=== PATIENT | male | born 1955 | race Caucasian/White ===

== ENCOUNTER 2019-07-21 00:26 | Outpatient (CLI) | payer MEDICARE, SELFPAY ==
[2019-07-21 18:00] LABS: SARS-CoV-2 RNA PCR Negative
== END 2019-07-21 00:27 | disposition home or self-care (01) ==
LOC: ANHCOVIDDT 00:28
PROVIDERS: PCP Family Medicine; Visit Provider Internal Medicine Cardiovascular Disease
DX: Z01.818 Encounter for other preprocedural examination (principal); Z11.59 Encounter for screening for other viral diseases
CPT/HCPCS: 87635; C9803; U0003

== ENCOUNTER 2019-07-24 05:04 | Day surgery (SDC) | payer MEDICARE, SELFPAY ==
[2019-07-19 10:49] VITALS: BMI 28.8
[2019-07-24 07:06] VITALS: BP 125/93; PULSE 52; RESP 11; TEMP 36.5; O2SAT 100
[2019-07-24 07:26] LABS: Basophils Percent Auto 0.8 % (0.2-1.2); Eosinophils Absolute Auto 0.3 K/mm3 (0-0.3); Eosinophils Percent Auto 5.2 % (0-4.4); Hematocrit 38.8 % (42.0-52.0); Hemoglobin 12.5 g/dL (14.0-18.0); Immature Granulocyte Absolute 0.01 K/mm3 (0.00-0.031); Immature Granulocyte Percent A 0.2 % (0-0.5); Lymphocytes Absolute Auto 1.56 K/mm3 (0.9-3.2); Lymphocytes Percent Auto 32.7 % (18.3-44.2); Mean Corpuscular HGB Conc 32.2 g/dl (32-36); Mean Corpuscular Hemoglobin 29.4 pg (26-34); Mean Corpuscular Volume 91.3 fl (80-100); Mean Platelet Volume 9.4 fl (7.4-10.4); Monocytes Absolute Auto 0.6 K/mm3 (0.1-0.6); Monocytes Percent Auto 13.2 % (2.6-8.5); Neutrophils Absolute Auto 2.3 K/mm3 (1.3-6.7); Neutrophils Percent Auto 47.9 % (45.5-73.1); Platelet Count Result 215 k/mm3 (150-375); Red Blood Count 4.25 M/mm3 (4.6-6.20); Red Cell Distribution Width 13.8 % (11.5-14.5); White Blood Count 4.8 K/mm3 (4.5-10.0)
[2019-07-24 07:41] LABS: Blood Urea Nitrogen 12 mg/dL (9-20); Calcium 9.1 mg/dL (8.4-10.2); Carbon Dioxide 28 mmol/L (22-30); Chloride 102 mmol/L (98-107); Estimated CRCL calculation 82 ml/min; Estimated Glomerular Filt Rate > 60; Glucose 121 mg/dL (75-110); Potassium 4.6 mmol/L (3.4-5.0); Prothrombin Time 12.7 Seconds (11.1-14.7); Sodium 138 mmol/L (137-145)
--- NOTE | 2019-07-24 08:32 | PM.IMHP ---
H&P: HPI History of Present Illness Chief complaint: ADRIANNA Narrative: Bernard Magallanes is a 63 year old male with a history of Biotronik ICD [place] [address] Bravo for secondary prevention. He has done well with no defibrillations but his pulse generator has reached ADRIANNA and he is here for generator change. The patient is followed by Dr. Melissa. He had a STEMI in 2010 treated with a STEVE to the proximal Left anterior descending. He has a history of ischemic cardiomyopathy with EF running about 39-45%, hypertension, dyslipidemia and he is a former smoker. He has been NPO. Review of Systems Constitutional: Constitutional: Denies body ache(s) and Denies chills Eyes: Eyes: Denies no additional eye complaints ENT: Denies nasal congestion Cardiovascular: Cardiovascular: Denies chest pain, Denies leg edema and Denies palpitations Respiratory: Respiratory: Denies chest congestion, Denies dyspnea and Denies dyspnea on exertion Gastrointestinal: Gastrointestinal: Denies abdominal pain Genitourinary: Genitourinary: Denies dysuria Musculoskeletal: Musculoskeletal: Denies arthralgias Integumentary/Breasts: Skin/Breast: Denies wounds Neurologic: Denies confusion Psychiatric: Psychiatric: Denies behavioral changes [facility] Past Medical History Medical History Coronary arteriosclerosis Essential hypertension Old myocardial infarction Overweight Prediabetes Pure hypercholesterolemia, unspecified Surgical History Surgical History History of cardiac catheterization (~11/21/10) Family History Family History (Updated 08/29/17 @ 13:46 by DOCTOR UNKNOWN) Father Family history of cardiovascular disease Diabetes mellitus Hypertension Family history of elevated blood lipids Mother Family history of dementia Family history of Alzheimer's disease Social History Social History Smoking status: Former smoker (quit August 2018) Tobacco type: cigarettes Smoking end date: 09/19/18 Alcohol intake: current Substance use: never Gender identity (if verbalized by the patient): Male Spiritual care concerns: No Meds Home Medications and Allergies Home Medications Medication Instructions Recorded Confirmed Type aspirin 81 mg tablet,delayed 81 mg PO DAILY 02/08/19 07/19/19 History release carvedilol 12.5 mg tablet 12.5 mg PO Q12H 02/08/19 07/19/19 History lisinopril 10 mg tablet 10 mg PO DAILY 02/08/19 07/19/19 History rosuvastatin 40 mg tablet 40 mg PO DAILY 02/08/19 07/19/19 History ezetimibe [Zetia] 10 mg PO DAILY 07/19/19 07/19/19 History Allergies Allergy/AdvReac Type Severity Reaction Status Date / Time No Known Allergies Allergy Verified 02/08/19 10:05 Vital Signs Vital Signs - 24 hr 07/24/19 07:06 Temperature 97.7 F Pulse Rate 52 L Respiratory Rate 11 L Blood Pressure 125/93 H Pulse Oximetry 100 Exam Const: General: comfortable and no acute distress HENMT: Mouth: Yes moist mucous membranes and Yes dry mucous membranes Eyes: EOM: EOMs intact bilaterally Neck: Neck: supple Resp: Effort & Inspection: normal respiratory effort Auscultation: clear to auscultation bilaterally Cardio: Rate: regular rate Rhythm: regular rhythm Heart sounds: no murmurs GI: Inspection: non-distended GI Palp: Yes Soft to palpation and No Tenderness to palpation present (GI) : Male General Exam: Yes erythema Skin: General skin exam: no rashes or lesions noted Other: ICD site is well healed Neuro: Cognition (Neuro): normal cognition Speech: normal speech Motor exam (neuro): Normal motor muscle tone present throughout Extrem: General: no edema Psych: Mental Status: mental status grossly normal Affect: normal affect H&P: Results Labs Labs: Short CBC 07/24/19 Range/Units 07:10 WBC 4.8 (4.5-
--- NOTE | 2019-07-24 08:39 | WPDMODSED ---
Moderate Sedation Note-Pt Data Patient Data Diagnosis: ICD at ADRIANNA Present Complaint: Dual-chamber Biotronik ICD implanted 2010, now at ADRIANNA. History of ischemic cardiomyopathy. Procedure to be performed/Plan: Conscious sedation new line generator change Allergies Allergy/AdvReac Type Severity Reaction Status Date / Time No Known Allergies Allergy Verified 02/08/19 10:05 Home Medications Medication Instructions Recorded Confirmed Type aspirin 81 mg tablet,delayed 81 mg PO DAILY 02/08/19 07/19/19 History release carvedilol 12.5 mg tablet 12.5 mg PO Q12H 02/08/19 07/19/19 History lisinopril 10 mg tablet 10 mg PO DAILY 02/08/19 07/19/19 History rosuvastatin 40 mg tablet 40 mg PO DAILY 02/08/19 07/19/19 History ezetimibe [Zetia] 10 mg PO DAILY 07/19/19 07/19/19 History Sedation/Anesthesia: No previous sedation/anesthesia problems (including family history). [facility] Past Medical History Medical History Coronary arteriosclerosis Essential hypertension Old myocardial infarction Overweight Prediabetes Pure hypercholesterolemia, unspecified Surgical History Surgical History History of cardiac catheterization (~11/21/10) Family History Family History (Updated 08/29/17 @ 13:46 by DOCTOR UNKNOWN) Father Family history of cardiovascular disease Diabetes mellitus Hypertension Family history of elevated blood lipids Mother Family history of dementia Family history of Alzheimer's disease Social History Social History Smoking status: Former smoker (quit August 2018) Tobacco type: cigarettes Smoking end date: 09/19/18 Alcohol intake: current Substance use: never Gender identity (if verbalized by the patient): Male Spiritual care concerns: No Mod Sed Physical Exam Physical Exam Pre Procedural Exam: Normal: Appearance, Eyes, Ears, Nose, Neck, Airway, Lungs, Heart Size, Heart Rate, Heart Rhythm, Neuro Exam, Abdomen, Liver, Spleen, Extremities and Skin (ICD site is well healed) and Variation: Throat (Dental caries) Hours since solid foods: 12 Hours since liquid intake: 12 Internal Medicine - PN: Obj Da Vital Signs Vital Signs: Vital Signs - 24 hr 07/24/19 07:06 Temperature 97.7 F Pulse Rate 52 L Respiratory Rate 11 L Blood Pressure 125/93 H Pulse Oximetry 100 Labs CBC & Chem 7: 07/24/19 07:10 07/24/19 07:10 Labs: Laboratory Results - last 24 hr 07/24/19 07/24/19 07/24/19 07:10 07:10 07:10 WBC 4.8 RBC 4.25 L Hgb 12.5 L Hct 38.8 L MCV 91.3 MCH 29.4 MCHC 32.2 RDW 13.8 Plt Count 215 MPV 9.4 Immature Gran % (Auto) 0.2 Neut % (Auto) 47.9 Lymph % (Auto) 32.7 Meriwether % (Auto) 13.2 H Eos % (Auto) 5.2 H Baso % (Auto) 0.8 Lymph # (Auto) 1.56 [place]iwether # (Auto) 0.6 Eos # (Auto) 0.3 Baso # (Auto) 0.0 Abs Immat Gran (auto) 0.01 Absolute Neuts (auto) 2.3 Absolute Nucleated RBC 0.0 Nucleated RBC % 0.0 PT 12.7 INR 1.0 Sodium 138 Potassium 4.6 Chloride 102 Carbon Dioxide 28 BUN 12 Creatinine 0.70 Estim Creat Clear Calc 82 Estimated GFR > 60 Glucose 121 H Calcium 9.1 ASA Classification/Sedation ASA Classification/Sedation ASA Class: II Risks: Risks, benefits and alternatives explained and patient/family accepted plan for sedation. Patient re-evaluated immediately prior to sedation.
--- NOTE | 2019-07-24 10:23 | P.OP_ITS ---
Procedure Note - Detailed Date of procedure: 07/24/19 Pre-op diagnosis: ADRIANNA ICD ADRIANNA Post-op diagnosis: same Procedure performed: conscious sedation generator change Description of procedure: PROCEDURE: Concious sedation Generator change UNDERLYING RHYTHM: NSR CONSCIOUS SEDATION: Assessment: The patient has no history of anesthesia problems. The oropharynx is clear. The patient was deemed to be a good candidate for conscious sedation. The patient had continuous hemodynamic and oximetric monitoring during the procedure. Start time: 925 Completion time: 12 09 Total conscious sedation time: 53 minutes Medications: Versed 2 mg, Versed IV push Trained observer: Kristen Hernandez Outcome: The patient tolerated the procedure well with no complications. PROCEDURE: After informed consent, the patient is brought to the cath lab radiology technician and the left prepectoral area was prepped and draped in usual fashion. The patient was given a prophylactic antibiotic intravenously with Ancef 2 g IV pushAfter conscious sedation as described above, the area was anesthetized with 1% lidocaine. A skin incision is made with the Plasma Blade and carried down to the pacing capsule which was also incised. Hemostasis is obtained using the Plasma Blade. the stay stitch was incised.The lead/s was/were freed from the underlying capsule and the pulse generator was delivered from the pocket. The lead/s was/were disconnected from the existing device and reconnected to the new device. A gentle tug could not remove it/them. The device and lead/s was/were interrogated and found to be functioning appropriately. The area was copiously irrigated with antibiotic-containing solution. The device was replaced in the pocket. Another stay stitch was applied 2 0 silk suture. The subcutaneous tissues were closed in a two-layer fashion with interrupted 2 0 Vicryl sutures and the skin was closed in a continuous fashion using 4 0 Vicryl. The area was cleansed, an Aquacel dressing applied. The patient tolerated the procedure well with no complications. Estimated blood loss was negligible. DEVICE INFORMATION: New pulse generator: Biotronik Itivia,, serial # [id number] Existing right atrial lead: BiotronikSetrox S 45, serial # [id number] Right ventricular lead: Biotronik Linox Smart S60, serial # [id number] Explanted device: Biotronik ICD Lumas 540, SErial # [id number], implanted 12/25/2010 THRESHOLD INFORMATION: Atrial lead: P-wave sensing is 3.4 mV, threshold 0.6 volts with 0.4 milliseconds, impedance 476 Ohms RV lead: R-wave sensing 5.0 mV, threshold 0.8 volts at 0.4 milliseconds, pacing impedance 395 Ohms, shock impedance 84 Ohms PROGRAMMED PARAMETERS: DDD 50/130, V-tach 1 zone is rate 150, V-tach 2 zone is rate 176, VFib zone is rate 222 FOLLOWUP: Follow-up in 1 week for an incision check and continue with device Clinic Surgeon: Rose Ulrich MD
[2019-07-24 10:40] VITALS: BP 116/98; PULSE 54; RESP 12; TEMP 36.8; O2SAT 97
[2019-07-24 10:45] VITALS: BP 118/79; PULSE 51; RESP 17; O2SAT 98
[2019-07-24 11:00] VITALS: BP 107/74; PULSE 50; RESP 14; O2SAT 97
[2019-07-24 11:15] VITALS: BP 119/82; PULSE 55; RESP 15; O2SAT 100
[2019-07-24 11:30] VITALS: BP 139/75; PULSE 62; RESP 16; O2SAT 100
== END 2019-07-24 11:50 | disposition home or self-care (01) ==
PROVIDERS: PCP Family Medicine; Visit Provider Internal Medicine Cardiovascular Disease
PROC: 0JPT0PZ Removal of Cardiac Rhythm Related Device from Trunk Subcutaneous Tissue and Fascia, Open Approach (ICD-10-PCS; CPT 33264; principal; 2019-07-24 08:30)
DX: Z45.02 Encounter for adjustment and management of automatic implantable cardiac defibrillator (principal); I25.5 Ischemic cardiomyopathy; I25.10 Atherosclerotic heart disease of native coronary artery without angina pectoris; I10 Essential (primary) hypertension; I25.2 Old myocardial infarction; E78.00 Pure hypercholesterolemia, unspecified; R73.03 Prediabetes; Z79.82 Long term (current) use of aspirin; Z87.891 Personal history of nicotine dependence
CPT/HCPCS: 33264; 36415; 80048; 85025; 85610; 87635; C1721; C9803; J0690; J1644; J2250; J3010; J7040; U0003

== ENCOUNTER 2019-08-21 09:12 | Outpatient (CLI) | payer MEDICARE, SELFPAY ==
--- NOTE | ~2019-08-21 | US_ITS ---
EXAMINATION: US aorta [facility] DATE: 08/21/2019 10:18 INDICATION: Abdominal aortic aneurysm screening. TECHNIQUE: Grayscale, color Doppler, and pulsed Doppler images of the aorta and common iliac arteries were obtained. COMPARISON: None. FINDINGS: The proximal aorta measures 2.4 cm. The mid aorta measures 2.3 cm. There is fusiform ectasia of the d istal aorta which measures up to 2.8 cm tapering to 1.8 cm at the bifurcation. The right common iliac artery measures 1.3 cm. The left common iliac artery measures 1.3 cm. IMPRESSION: 1. Fusiform ectasia of the infrarenal aorta which measures up to 2.8 cm. Reviewed, dictated and finalized at location A.
--- NOTE | ~2019-08-21 | CT_ITS ---
EXAMINATION: CT lung screening EXAM DATE: 08/21/2019 10:18 INDICATION: Personal history of nicotine dependence. TECHNIQUE: Spiral low dose CT of the chest without contrast. Axial, coronal and sagittal images were reviewed. The dose-length product (DLP) for this examination was 111.11 mGy-cm. The exposure was t ailored according to patient size (auto mA exposure control), and iterative reconstruction (ASIR) was used as additional dose reduction technique. There is no prior study for comparison. FINDINGS: There is a dual lead pacemaker/AICD seen with leads projecting over the expected locations of the right atrial appendage and right ventricle. Scattered calcified granulomas. There is mild emp hysema. There is a 3 mm noncalcified nodule in the right lower lobe superior segment. Tracheobronchi al tree is patent. There is no mediastinal, hilar or axillary lymphadenopathy. There are no pleur al or pericardial effusions. There is no pneumothorax. Heart normal in size. There is moderate coronary arterial calcification, arterial sclerosis. Some calcifications along the interventricular s eptum, probably old septal infarction. Upper abdomen is unremarkable. There is mild thoracic spondy losis without osteoblastic or osteolytic lesions identified. IMPRESSION: Lung-RADS category 2, benign appearance or behavior (<1% chance of malignancy); recommend continued LDCT screening in 1 year. > Reviewed, dictated and finalized at location B.
== END 2019-08-21 09:13 | disposition home or self-care (01) ==
PROVIDERS: PCP Family Medicine; Visit Provider Physician Assistant
DX: Z12.2 Encounter for screening for malignant neoplasm of respiratory organs (principal); Z87.891 Personal history of nicotine dependence; Z13.6 Encounter for screening for cardiovascular disorders; I77.819 Aortic ectasia, unspecified site
CPT/HCPCS: 76706; G0297

== ENCOUNTER 2019-12-28 00:47 | Outpatient (CLI) | payer MEDICARE, SELFPAY ==
[2019-12-28 20:27] LABS: SARS-CoV-2 RNA PCR Negative
== END 2019-12-28 00:48 | disposition home or self-care (01) ==
LOC: ANHCOVIDDT 00:47
PROVIDERS: PCP Family Medicine; Visit Provider Internal Medicine Gastroenterology
DX: Z01.812 Encounter for preprocedural laboratory examination (principal); Z20.828 Contact with and (suspected) exposure to other viral communicable diseases
CPT/HCPCS: 87635; C9803; U0003

== ENCOUNTER 2019-12-31 00:37 | Day surgery (SDC) | payer MEDICARE, SELFPAY ==
[2019-12-25 10:00] VITALS: BMI 28.4
[2019-12-31 10:17] VITALS: BP 138/79; PULSE 81; RESP 18; TEMP 36.4; O2SAT 100
[2019-12-31] MEDS: LACTATED RINGERS 1,000 ML 150 ML IV CONT (10:24)
--- NOTE | 2019-12-31 10:26 | WPDGICN ---
Assessment and Plan Assessment and plan (1) Encounter for screening colonoscopy: Code(s): Z12.11 - Encounter for screening for malignant neoplasm of colon Status: Acute Assessment and Plan: Patient presents for screening colonoscopy because of age. Appears to be at average risk for colon polyps. GI Consult Note Consult date/time: 12/31/19 10:26 HPI: Bernard Magallanes is a 64 year old male Seen in evaluation at the request of Dr Deborah Dick. patient presents for screening colonoscopy. Current weight appetite bowel movements are normal. Patient denies abdominal pain. He has had no bleeding. His weight appetite are all normal. Family history is noncontributory. Review of Systems Review of Systems: All systems reviewed & are unremarkable except as noted in HPI and below PMFSH Past Medical History Medical History (Updated 12/31/19 @ 10:28 by Pawel Alcazar MD) Coronary arteriosclerosis Essential hypertension Old myocardial infarction Overweight Prediabetes Pure hypercholesterolemia, unspecified Surgical History Surgical History History of cardiac catheterization (~11/21/10) Family History Family History Father Family history of cardiovascular disease Diabetes mellitus Hypertension Family history of elevated blood lipids Mother Family history of dementia Family history of Alzheimer's disease Social History Social History Smoking status: Former smoker (quit August 2018) Tobacco type: cigarettes Smoking end date: 09/19/18 Alcohol intake: current Substance use: never Living arrangements: with family Gender identity (if verbalized by the patient): Male Spiritual care concerns: No Meds Home Medications and Allergies Home Medications Medication Instructions Recorded Confirmed Type aspirin 81 mg tablet,delayed 81 mg PO DAILY 02/08/19 12/25/19 History release carvedilol 12.5 mg tablet 12.5 mg PO Q12H 02/08/19 12/25/19 History lisinopril 10 mg tablet 10 mg PO DAILY 02/08/19 12/25/19 History rosuvastatin 40 mg tablet 40 mg PO DAILY 02/08/19 12/25/19 History ezetimibe [Zetia] 10 mg PO DAILY 07/19/19 12/25/19 History Allergies Allergy/AdvReac Type Severity Reaction Status Date / Time No Known Allergies Allergy Verified 12/31/19 10:13 Vital Signs Vital Signs - 24 hr 12/31/19 10:17 Temperature 97.6 F Pulse Rate 81 Respiratory Rate 18 Blood Pressure 138/79 Pulse Oximetry 100 Exam Narrative: Exam Narrative: Physical exam reveals patient to be alert. Vital signs stable. HEENT exam unremarkable. Lungs are clear to auscultation and percussion. Heart is without murmur or extra sounds. Abdominal exam bowel sounds present soft nontender with no hepatosplenomegaly. Digital external rectal exam normal.
--- NOTE | 2019-12-31 11:27 | WPDANESEPPF ---
Anes - Initial Pre Proc Eval Procedure: Operation Date: 12/31/19 11:00 Proposed Procedures p Screening Colonoscopy - Pawel Alcazar MD Date/Time: 12/31/19 11:27 Surgeon: Pawel Alcazar MD Pre Op Diagnosis: neoplasm screening Patient Data Age: 64 Gender: M Height: 5 ft 6 in Weight: 84.5 kg Last Vital Signs Temp 36.4 C 12/31/19 10:17 Pulse 81 12/31/19 10:17 Resp 18 12/31/19 10:17 BP 138/79 12/31/19 10:17 Pulse Ox 100 12/31/19 10:17 Allergies Allergy/AdvReac Type Severity Reaction Status Date / Time No Known Allergies Allergy Verified 12/31/19 10:13 Home Medications Medication Instructions Recorded Confirmed Type aspirin 81 mg tablet,delayed 81 mg PO DAILY 02/08/19 12/25/19 History release carvedilol 12.5 mg tablet 12.5 mg PO Q12H 02/08/19 12/25/19 History lisinopril 10 mg tablet 10 mg PO DAILY 02/08/19 12/25/19 History rosuvastatin 40 mg tablet 40 mg PO DAILY 02/08/19 12/25/19 History ezetimibe [Zetia] 10 mg PO DAILY 07/19/19 12/25/19 History Patient hx anesthesia problems: none Family hx anesthesia problems: none PMFSH Past Medical History Medical History Coronary arteriosclerosis Essential hypertension Old myocardial infarction Overweight Prediabetes Pure hypercholesterolemia, unspecified Surgical History Surgical History History of cardiac catheterization (~11/21/10) Family History Family History Father Family history of cardiovascular disease Diabetes mellitus Hypertension Family history of elevated blood lipids Mother Family history of dementia Family history of Alzheimer's disease Social History Social History Smoking status: Former smoker (quit August 2018) Tobacco type: cigarettes Smoking end date: 09/19/18 Alcohol intake: current Substance use: never Living arrangements: with family Gender identity (if verbalized by the patient): Male Spiritual care concerns: No Anes - Eval Final PreProcedure Day of Procedure 12/31/19 11:27 Patient weight: overweight Heart: regular rate and rhythm Lungs: decreased breath sounds Airway: Mallampati scale class II Neurological: alert and oriented Last oral intake: >/= 8 hours ASA classification: IV Emergent: no Anesthetic plan: proceed Anesthesia type and monitoring: general GIVS and standard monitoring Informed Consent: The patient's anesthetic plan and its attendant risks and benefits were discussed with the patient/family/POA. Questions were solicited and answers provided to the satisfaction of the patient/family/POA.
[2019-12-31 11:50] VITALS: BP 108/69; PULSE 74; RESP 15; O2SAT 100
[2019-12-31 12:00] VITALS: BP 123/79; PULSE 75; RESP 15; O2SAT 98
[2019-12-31 12:10] VITALS: BP 129/86; PULSE 70; RESP 15; O2SAT 98
== END 2019-12-31 12:24 | disposition home or self-care (01) ==
PROVIDERS: PCP Family Medicine; Visit Provider Internal Medicine Gastroenterology
PROC: 0DJD8ZZ Inspection of Lower Intestinal Tract, Via Natural or Artificial Opening Endoscopic (ICD-10-PCS; CPT 45378; principal; 2019-12-31 11:00)
DX: Z12.11 Encounter for screening for malignant neoplasm of colon (principal); K64.8 Other hemorrhoids; I10 Essential (primary) hypertension; I25.10 Atherosclerotic heart disease of native coronary artery without angina pectoris; I48.91 Unspecified atrial fibrillation; I25.2 Old myocardial infarction; E78.00 Pure hypercholesterolemia, unspecified; R73.03 Prediabetes; E66.3 Overweight; Z68.30 Body mass index [BMI] 30.0-30.9, adult; Z87.891 Personal history of nicotine dependence; Z79.82 Long term (current) use of aspirin; Z79.899 Other long term (current) drug therapy
CPT/HCPCS: 45378; J2704; J7120

== ENCOUNTER 2020-05-06 09:32 | Outpatient (CLI) | payer MEDICARE, SELFPAY | END 2020-05-06 09:33 | disposition home or self-care (01) | LOC: ANHCOVIDVC 09:32 | PROVIDERS: PCP Family Medicine | DX: Z23 Encounter for immunization (principal) | CPT/HCPCS: 0001A; 91300 ==

== ENCOUNTER 2020-05-19 11:41 | Outpatient (CLI) | payer MEDICARE, SELFPAY ==
--- NOTE | ~2020-05-19 | XR_ITS ---
XR shoulder RT min 2V 05/19/2020 11:57 Indication: Right shoulder pain. Limited range of motion. Procedure: 4 views right shoulder Comparison: No prior studies for comparison. Findings: There is severe glenohumeral joint osteoarthritis. There are multiple calcified granulomas of the right lung. Pacemaker leads are present. No fracture or traumatic malalignment. No focal soft tissue abnormality. Impression: 1: Severe glenohumeral joint osteoarthritis. Reviewed, dictated and finalized at location B. Impression: 1: Severe glenohumeral joint osteoarthritis.
== END 2020-05-19 11:42 | disposition home or self-care (01) ==
PROVIDERS: PCP Family Medicine; Visit Provider Physician Assistant
DX: M25.511 Pain in right shoulder (principal); M19.011 Primary osteoarthritis, right shoulder
CPT/HCPCS: 73030

== ENCOUNTER 2020-05-27 09:31 | Outpatient (CLI) | payer MEDICARE, SELFPAY | END 2020-05-27 09:32 | disposition home or self-care (01) | LOC: ANHCOVIDVC 09:31 | PROVIDERS: PCP Family Medicine | DX: Z23 Encounter for immunization (principal) | CPT/HCPCS: 0002A; 91300 ==

== ENCOUNTER 2020-09-03 11:05 | Outpatient (CLI) | payer MEDICARE, SELFPAY ==
--- NOTE | ~2020-09-03 | CT_ITS ---
EXAMINATION:CT lung screening DATE: 09/03/2020 11:27 INDICATION: Personal history of tobacco dependence. Smoker who quit 15 years ago with 30 pack year hi story. TECHNIQUE: Computed tomography (CT) of the chest was performed without intravenous contrast. Automate d exposure control and iterative reconstruction technique were employed. The dose-length product (DLP ) was 131.93 mGy-cm. COMPARISON: Chest CT 08/21/2019 FINDINGS: There is mild atelectasis bilaterally. Calcified bilateral pulmonary nodules and calcified hilar and mediastinal lymph nodes are consistent with old granulomatous disease. There is a 3 mm nodu le in the lingula. No pleural effusion. The heart size is normal. There are coronary artery calcifica tions. There is an old infarct involving anterior and septal hung of left ventricle. No pericardial effusion. There is a left chest wall pacer with leads in the right atrium and right ventricle. There is mild thoracic spondylosis. IMPRESSION: 1. Lung-RADS category 2: Benign appearance or behavior. Continue annual screening with noncontrast lo w-dose chest CT in 12 months. Reviewed, dictated and finalized at location A. IMPRESSION: 1. Lung-RADS category 2: Benign appearance or behavior. Continue annual screeni ng with noncontrast low-dose chest CT in 12 months.
== END 2020-09-03 11:06 | disposition home or self-care (01) ==
LOC: ANHIMG 11:10
PROVIDERS: PCP Family Medicine; Visit Provider Physician Assistant
DX: Z12.2 Encounter for screening for malignant neoplasm of respiratory organs (principal); Z87.891 Personal history of nicotine dependence
CPT/HCPCS: 71271

== ENCOUNTER 2021-09-15 11:06 | Outpatient (CLI) | payer MEDICARE, SELFPAY ==
--- NOTE | ~2021-09-15 | CT_ITS ---
EXAMINATION: CT lung screening DATE: 09/15/2021 11:30 INDICATION: Lung cancer screening. Personal history of tobacco dependence. TECHNIQUE: Computed tomography (CT) of the chest was performed without intravenous contrast. The dose -length product was 136.93 mGy-cm. Automated exposure control and iterative reconstruction technique were employed. COMPARISON: None FINDINGS: There are multiple bilateral calcified pulmonary nodules, consistent with chronic granuloma tous disease. There are calcified hilar and mediastinal lymph nodes as well. There is a 3 mm right up per lobe nodule. There are a few 1-2 mm upper lobe nodules. There is a right fissural nodule measurin g 2 mm. No pneumothorax. No focal airspace consolidation. No endobronchial lesions. No thoracic lymph adenopathy. The upper abdomen is unremarkable. Mild thoracic and lumbar spondylosis. There is a left chest wall pacer with leads in the right atrium and right ventricle respectively. Mild thoracic spond ylosis. IMPRESSION: 1. Lung-RADS category 2: Benign appearance or behavior. Continue annual screening with noncontrast lo w-dose chest CT in 12 months. Reviewed, dictated and finalized at location A. IMPRESSION: 1. Lung-RADS category 2: Benign appearance or behavior. Continue annual screeni ng with noncontrast low-dose chest CT in 12 months.
== END 2021-09-15 11:07 | disposition home or self-care (01) ==
PROVIDERS: PCP Family Medicine; Visit Provider Family Medicine
DX: Z12.2 Encounter for screening for malignant neoplasm of respiratory organs (principal); Z87.891 Personal history of nicotine dependence
CPT/HCPCS: 71271

== ENCOUNTER 2021-09-25 10:00 | Outpatient (CLI) | payer MEDICARE, SELFPAY ==
--- NOTE | 2021-09-25 14:07 | WPDPFTINT ---
PFT Procedure Performed PFT Procedure Performed Spirometry with Pre/Post Bronchodilator Plethysmography (Lung Vol) Diffusing Cap (DLCO) Flow Vol Loop PFT Interpretation This is a pulmonary function test with pre and post-bronchodilator spirometry, plethysmography and diffusing capacity. The test was performed and results interpreted in accordance with the 2019 and 2005 ATS/ERS Task Force guidelines respectively using the Global Lung Function Initiative-2012 reference equations. Patient demonstrated good effort and cooperation. Reproducibility criteria were met. The quality of the pre bronchodilator spirometry maneuver was Grade A and post bronchodilator spirometry maneuver was Grade A. Findings: Spirometry: The expiratory flow tracing demonstrates a mid expiratory plateau in airflow creating a mild convex inflection referred to as the knee pattern in 0 of 3 pre bronchodilator efforts and in 2 of 3 post bronchodilator efforts. There is decreased maximal expiratory airflow at all lung volumes with a concave expiratory flow tracing. The contour the inspiratory flow tracing is normal. The pre bronchodilator FVC is 3.53 L, 93% predicted. The pre bronchodilator FEV1 is 2.19 L, 75% predicted. The pre bronchodilator FEV1: FVC ratio 62%. The post bronchodilator FVC is 3.88 L, representing a 10% increase. The post bronchodilator FEV1 is 2.52 L, representing a 15% increase. The post bronchodilator FEV1: FVC ratio 65%. Plethysmography: The total lung capacity is 6.30 L, 101% predicted. The functional residual capacity is 3.60 L, 111% predicted. The residual volume is 2.77 L, 127% predicted. Diffusion capacity: The diffusion capacity unadjusted for hemoglobin and carboxyhemoglobin is 19.0, 75% predicted. The diffusing capacity adjusted for alveolar volume is 3.30, 78% predicted. In comparison to previous pulmonary function testing on 12/30/2014 the contour the inspiratory and expiratory flow tracing are normal. The post bronchodilator FVC is unchanged from 3.74 L to 3.88 L. The post bronchodilator FEV1 is unchanged from 2.57 L to 2.52 L. The total lung capacity is decreased from 8.22 L to 6.33 L. The functional residual capacity is decreased from 5.40 L to 3.60 L. The residual volume is decreased from 4.93 L to 2.77 L. The diffusing capacity unadjusted for hemoglobin and carboxyhemoglobin is unchanged from 17.5 to 19.0. The diffusing capacity adjusted for alveolar volume is unchanged from 3.72 to 3.30. Impression: The expiratory flow tracing demonstrates a mid expiratory plateau in airflow creating a convex inflection referred to as the knee pattern in 2 of 3 post bronchodilator efforts. this pattern was not present in the pre bronchodilator efforts. This pattern can be a normal variant or pathologic and has been attributed to a choke point section of the bronchial tree. The normal variant is more common in younger female patients, decreases with age and is more pronounced in the post bronchodilator efforts. The pattern has also been described with kyphosis, kyphoscoliosis, central obstructing masses, and post lung transplantation. Clinical correlation is recommended. There is a mild obstructive abnormality with a normal [id number] with significant improvement after inhaling a single dose of albuterol. The lung volumes are normal. The diffusing capacity is normal. In comparison to previous pulmonary function tests on 12/30/2014 There is now a post bronchodilator knee pattern in the expiratory flow tracing and there has been a greater than anticipated time dependent decrease in the total lung capacity, functional residual capacity and residual volume with no change in the FVC, FEV1 or diffusing capacity. clinical correlation recommended
== END 2021-09-25 10:01 | disposition home or self-care (01) ==
LOC: ANHPFT 10:02
PROVIDERS: PCP Family Medicine; Visit Provider Family Medicine
DX: R06.09 Other forms of dyspnea (principal); R94.2 Abnormal results of pulmonary function studies
CPT/HCPCS: 94060; 94726; 94729

== ENCOUNTER 2022-01-06 08:58 | Outpatient (CLI) | payer MEDICARE, SELFPAY ==
[2022-01-06 09:20] LABS: Kit Draw Collected
== END 2022-01-06 08:59 | disposition home or self-care (01) ==
LOC: ANHGOSHLAB 09:01
PROVIDERS: PCP Family Medicine; Visit Provider Family Medicine
DX: D64.9 Anemia, unspecified (principal); E78.00 Pure hypercholesterolemia, unspecified; R73.03 Prediabetes
CPT/HCPCS: 36415

== ENCOUNTER 2022-05-10 14:45 | Outpatient (RCR) | payer MEDICARE, SELFPAY ==
--- NOTE | 2022-04-12 13:41 | PTOPEVAL1 ---
Assessment and note entered by Anitra Pond DPT Evaluation Information Assessment Status Evaluation Subjective Information The patient reports bilateral shoulder pain and has x-rays which confirmed arthritis. Pain is worsening over time. Highest pain 6/10 and lowest 0/10.Denies n/t. Pain increases with dressing and sometimes needs help to put a coat on, reaching into a cabinet, sometimes lifting a gallon of milk . Can do cooking and cleaning but not as efficiently as before. In general patient is not able to do as much as he could a year or two ago and has more pain now. Pain is worse in right but present in both. Pt is right hand dominant. Pt is retired. Some soreness with driving. Returns to [place] in August. Reported Pain Level Pain Score 0: Self Report Assessment PT Clinical Summary The patient is presenting to skilled therapy with a history of progressing bilateral shoulder pain and a diagnosis of OA. He presents with decreased range of motion in all planes as well as decreased upper extremity strength, which are contributing to his pain and difficulty with activities like reaching overhead and dressing. He will benefit from therapy to address these impairments in order to decrease pain and return to PLOF. Plan of Care Interventions Electrical Stimulation,Hot Pack/Cold Pack,Manual Therapy,Neuro Re-education,Patient/Caregiver Education,Therapeutic Activities,Therapeutic Exercise,Self-Care/Home Management PT Services Indicated Yes Treatment Frequency and 1-2 times a week for 4 weeks Duration These treatments will address the objective and functional deficits as defined above. The patient will be advanced safely and appropriately in order for the patient to progress towards his/her prior level of function. Additional exercises will be introduced and as well as a comprehensive home exercise program upon discharge, if needed, ?to ensure carryover of functional gains achieved in the clinic. This treatment plan has been reviewed and agreement upon by the patient.
--- NOTE | 2022-04-20 10:12 | PCPTNOTE ---
Patient called to cancel due to illness.
--- NOTE | 2022-05-10 15:15 | PTOPDC ---
Assessment and note entered by Anitra Pond DPT Evaluation Information Assessment Status Discharge Subjective Information The patient reports highest pain 6/10 and lowest 0 /10 but has not been as painful as often. Is noticing some improvements overall, less difficulty lifting as long as he watches how he does it. Reported Pain Level Pain Score 1: Self Report Assessment PT Clinical Summary The patient has made good progress in therapy. He reports decreased pain overall and demonstrates improved shoulder range of motion and strength bilaterally. Due to his progress, plan for discharge at this time. He has been educated to continue his HEP and contact MD and/or PT as needed. Plan of Care Interventions Electrical Stimulation,Hot Pack/Cold Pack,Manual Therapy,Neuro Re-education,Patient/Caregiver Education,Therapeutic Activities,Therapeutic Exercise,Self-Care/Home Management PT Services Indicated No Treatment Frequency and 1-2 times a week for 4 weeks Duration
== END 2022-05-10 15:27 | disposition home or self-care (01) ==
LOC: ANHGOSHPT 14:45
PROVIDERS: PCP Family Medicine; Visit Provider Family Medicine
DX: M25.511 Pain in right shoulder (principal); M25.512 Pain in left shoulder; M19.90 Unspecified osteoarthritis, unspecified site
CPT/HCPCS: 97110; 97112; 97140; 97161; 97530

== ENCOUNTER 2022-09-07 08:07 | Outpatient (CLI) | payer MEDICARE, SELFPAY ==
[2022-09-07 11:28] LABS: Kit Draw Collected
== END 2022-09-07 08:08 | disposition home or self-care (01) ==
LOC: ANHGOSHLAB 08:09
PROVIDERS: PCP Family Medicine; Visit Provider Nurse Practitioner
DX: E78.00 Pure hypercholesterolemia, unspecified (principal); Z12.5 Encounter for screening for malignant neoplasm of prostate; R73.03 Prediabetes; Z13.29 Encounter for screening for other suspected endocrine disorder; D64.9 Anemia, unspecified
CPT/HCPCS: 36415

== ENCOUNTER 2022-09-16 13:43 | Outpatient (CLI) | payer MEDICARE, SELFPAY ==
--- NOTE | ~2022-09-16 | CT_ITS ---
CT Scan of the Chest without Contrast: Clinical Indication: Lung cancer screening, smoking history, pulmonary nodules Technique: Contiguous sections were acquired throughout the chest without intravenous contrast. Dose reduction technique was used on this scan by utilizing automated exposure control and iterative recon struction technique. The dose-length product (DLP) was 150.49 mGy-cm. COMPARISON: 09/15/2021, 09/03/2020 Findings: There is no evidence of any significant mediastinal, hilar or axillary lymphadenopathy. There are ath erosclerotic calcifications of the aorta and coronary arteries. Pacemaker is present. Calcified right hilar lymph nodes are present.. There is no evidence of pleural or pericardial effusion. Scattered calcified pulmonary granulomas are present. Images through the upper abdomen reveal no abnormalities. Impression: Lung RADS 2: Benign appearance. 12 month follow-up screening CT advised. Reviewed, dictated and finalized at [facility]. Impression: Lung RADS 2: Benign appearance. 12 month follow-up screening CT advised.
== END 2022-09-16 13:44 | disposition home or self-care (01) ==
PROVIDERS: PCP Family Medicine; Visit Provider Physician Assistant
DX: Z12.2 Encounter for screening for malignant neoplasm of respiratory organs (principal); Z87.891 Personal history of nicotine dependence; R91.8 Other nonspecific abnormal finding of lung field
CPT/HCPCS: 71271

== ENCOUNTER 2022-11-26 08:53 | Outpatient (CLI) | payer MEDICARE, SELFPAY ==
--- NOTE | 2022-11-26 15:38 | WPDPFTINT ---
PFT Procedure Performed PFT Procedure Performed Spirometry with Pre/Post Bronchodilator Plethysmography (Lung Vol) Diffusing Cap (DLCO) Flow Vol Loop PFT Interpretation This is a pulmonary function test with pre and post-bronchodilator spirometry, plethysmography and diffusing capacity. The test was performed and results interpreted in accordance with the 2019 and 2005 ATS/ERS Task Force guidelines respectively using the Global Lung Function Initiative-2012 reference equations. Patient demonstrated good effort and cooperation. Reproducibility criteria were met. The quality of the pre bronchodilator spirometry maneuver was Grade A and post bronchodilator spirometry maneuver was Grade A. Findings: Spirometry: There is decreased maximal expiratory airflow with concave expiratory flow tracing. The contour the inspiratory flow tracing is normal. The pre bronchodilator FVC is 3.21 L, 83% predicted. The pre bronchodilator FEV1 is 2.11 L, 72% predicted. The pre bronchodilator FEV1: FVC ratio 66%. The post bronchodilator FVC is 3.62 L, representing a 13% increase. The post bronchodilator FEV1 is 2.35 L, representing an 11% increase. The post bronchodilator FEV1: FVC ratio 65%. Plethysmography: The total lung capacity is 5.09 L, 80% predicted. The functional residual capacity is 2.22 L, 66% predicted. The residual volume is 1.88 L, 83% predicted. Diffusing capacity: The diffusing capacity unadjusted for hemoglobin and carboxyhemoglobin is 20.0, 80% predicted. The diffusing capacity adjusted for alveolar volume is 3.55, 86% predicted. Impression: The spirometry is normal without evidence of an obstructive abnormality. There is a significant improvement after inhaling a single dose of albuterol. The lung volumes are normal. The diffusing capacity is normal. There are no prior studies for comparison
== END 2022-11-26 08:54 | disposition home or self-care (01) ==
LOC: ANHPFT 08:54
PROVIDERS: PCP Family Medicine; Visit Provider Internal Medicine Critical Care Medicine
DX: R06.09 Other forms of dyspnea (principal)
CPT/HCPCS: 94060; 94726; 94729

== ENCOUNTER 2022-11-30 08:32 | Outpatient (CLI) | payer MEDICARE, SELFPAY ==
--- NOTE | ~2022-11-30 | US_ITS ---
EXAMINATION: US aorta DATE: 11/30/2022 09:15 CDT INDICATION: Abdominal aortic ectasia TECHNIQUE: Grayscale, color Doppler, and pulsed Doppler images of the aorta and common iliac arteries were obtained. COMPARISON: Ultrasound dated 08/21/2019. FINDINGS: The proximal aorta measures 2.6 cm greatest sagittal dimension. The mid aorta measures 2.7 cm greates t sagittal dimension. The distal aorta measures 2.7 cm greatest sagittal dimension. The right common internal iliac artery measures 1.5 cm. The left common iliac artery measures 1.4 cm. IMPRESSION: 1. Atherosclerosis of the abdominal aorta without aneurysm. Reviewed, dictated and finalized at location L.
== END 2022-11-30 08:33 | disposition home or self-care (01) ==
LOC: ANHIMG 08:33
PROVIDERS: PCP Family Medicine; Visit Provider Nurse Practitioner
DX: I77.811 Abdominal aortic ectasia (principal); I70.0 Atherosclerosis of aorta
CPT/HCPCS: 76775

== ENCOUNTER 2023-01-11 10:01 | Outpatient (CLI) | payer MEDICARE, SELFPAY ==
[2023-01-11 19:46] LABS: Alanine Aminotransferase 26 U/L (6-50); Albumin Level 4.5 g/dL (3.5-5.1); Alkaline Phosphatase 51 U/L (38-126); Anion Gap 8 mmol/L (8-16); Aspartate Amino Transferase 41 U/L (17-59); Bilirubin,Total 0.7 mg/dL (0.2-1.3); Blood Urea Nitrogen 11 mg/dL (9-20); Calcium 9.4 mg/dL (8.4-10.2); Carbon Dioxide 28 mmol/L (22-30); Chloride 98 mmol/L (98-107); Cholesterol 141 mg/dL (0-200); Estimated Glomerular Filt Rate > 60; Glucose 99 mg/dL (65-110); HDL Direct 59 mg/dL; Potassium 4.4 mmol/L (3.4-5.0); Sodium 134 mmol/L (137-145); Triglycerides 87 mg/dL (<150)
[2023-01-11 19:57] LABS: LDL Cholesterol Direct 55 mg/dL
[2023-01-11 22:59] LABS: Hemoglobin A1C 5.6 % (<5.7)
== END 2023-01-11 10:02 | disposition home or self-care (01) ==
LOC: ANHGOSHLAB 10:02
PROVIDERS: PCP Family Medicine; Visit Provider Nurse Practitioner
DX: E78.00 Pure hypercholesterolemia, unspecified (principal); R73.03 Prediabetes
CPT/HCPCS: 36415; 80053; 80061; 83036

== ENCOUNTER → 2023-01-26 10:35 | Outpatient (CLI) | payer MEDICARE, SELFPAY ==
--- NOTE | ~2023-01-26 | US_ITS ---
EXAMINATION: US soft tissue upper back DATE: 01/26/2023 10:51 INDICATION: A couple nontender back masses TECHNIQUE: Multiple grayscale and Doppler ultrasound images of the region of concern at the posterior left and right upper chest were obtained. COMPARISON: None FINDINGS: Long the lateral margin of the left scapula is a 6.1 x 3.6 x 2.1 cm hypoechoic mass with smooth yasmeen ns centered along the junction of the dermis and underlying subcutaneous fat. There is a small hypoec hoic tract extending into the dermis. There is also posterior acoustic enhancement the absence of int ernal vascular flow on color Doppler suggests a complex cystic lesion. The second mass located slight ly to the right of midline medial to the medial margin of the scapula is 1.9 x 1.5 x 1.8 cm. This dem onstrates identical imaging features including a similar hypoechoic tract extending into the dermis. There is no surrounding hyperemia and per provided history lesions are nontender which would argue ag ainst abscess. IMPRESSION: 1. Similar-appearing 6.1 x 3.6 x 2.1 cm mass lateral to the left scapula and 1.9 cm mass effect media l to the right scapula, both with imaging features most consistent with epidermoid cysts. Reviewed, dictated and finalized at location A. CE ADMINISTRATIVE ASSISTANT IMPRESSION: 1. Similar-appearing 6.1 x 3.6 x 2.1 cm mass lateral to the left scapula and 1. 9 cm mass effect medial to the right scapula, both with imaging features most c onsistent with epidermoid cysts.
== END ==
PROVIDERS: PCP Plastic Surgery; Visit Provider Family Medicine
DX: R22.2 Localized swelling, mass and lump, trunk (principal)
CPT/HCPCS: 76604

== ENCOUNTER → 2023-02-07 14:40 | Outpatient (REF) | payer MEDICARE, SELFPAY | LOC: ANHLAB 14:40 | PROVIDERS: PCP Plastic Surgery; Visit Provider Plastic Surgery | DX: L72.0 Epidermal cyst (principal); R22.2 Localized swelling, mass and lump, trunk | CPT/HCPCS: 88305 ==

== ENCOUNTER 2023-07-21 09:45 | Outpatient (CLI) | payer MEDICARE, SELFPAY ==
[2023-07-21 13:25] LABS: Alanine Aminotransferase 20 U/L (6-50); Albumin Level 4.4 g/dL (3.5-5.1); Alkaline Phosphatase 51 U/L (38-126); Anion Gap 6 mmol/L (4-12); Aspartate Amino Transferase 33 U/L (17-59); Bilirubin,Total 0.6 mg/dL (0.2-1.3); Blood Urea Nitrogen 12 mg/dL (9-20); Calcium 9.4 mg/dL (8.4-10.2); Carbon Dioxide 27 mmol/L (22-30); Chloride 102 mmol/L (98-107); Cholesterol 126 mg/dL (0-200); Estimated Glomerular Filt Rate > 60; Glucose 111 mg/dL (65-110); HDL Direct 57 mg/dL; Potassium 4.1 mmol/L (3.4-5.0); Sodium 135 mmol/L (137-145); Triglycerides 87 mg/dL (<150)
[2023-07-21 13:29] LABS: Hematocrit 39.8 % (42.0-52.0); Hemoglobin 12.5 g/dL (14.0-18.0); Mean Corpuscular HGB Conc 31.4 g/dl (32-36); Mean Corpuscular Hemoglobin 29.2 pg (26-34); Mean Platelet Volume 10.6 fl (7.4-10.4); Platelet Count Result 218 k/mm3 (150-375); Red Blood Count 4.28 M/mm3 (4.6-6.20); Red Cell Distribution Width 14.1 % (11.5-14.5); White Blood Count 6.1 K/mm3 (4.5-10.0)
[2023-07-21 13:36] LABS: LDL Cholesterol Direct 53 mg/dL
[2023-07-21 21:24] LABS: Hemoglobin A1C 5.5 % (<5.7)
== END 2023-07-21 09:46 | disposition home or self-care (01) ==
PROVIDERS: PCP Family Medicine; Visit Provider Family Medicine
DX: R73.03 Prediabetes (principal); E78.00 Pure hypercholesterolemia, unspecified; I10 Essential (primary) hypertension; E66.9 Obesity, unspecified; R22.2 Localized swelling, mass and lump, trunk
CPT/HCPCS: 36415; 80053; 80061; 83036; 84443; 85027

== ENCOUNTER 2023-09-19 10:23 | Outpatient (CLI) | payer MEDICARE, SELFPAY ==
--- NOTE | ~2023-09-19 | CT_ITS ---
CT Scan of the Chest without Contrast: Clinical Indication: Lung cancer screening, nicotine dependence Technique: Contiguous sections were acquired throughout the chest without intravenous contrast. Dose reduction technique was used on this scan by utilizing automated exposure control and iterative recon struction technique. The dose-length product (DLP) was 157.50 mGy-cm. COMPARISON: 09/16/2022 Findings: There is no evidence of any significant mediastinal, hilar or axillary lymphadenopathy. Pacemaker dev ice present. There are extensive coronary artery calcifications. Calcified right hilar lymph node pre sent.. There is no evidence of pleural or pericardial effusion. 2 mm fissural nodule in the left lung noted (axial image 60). Calcified granulomas are present. Images through the upper abdomen reveal no abnormalities. Impression: Lung RADS 2: Benign appearance. 12 month follow-up screening CT advised. Reviewed, dictated and finalized at [facility]. Impression: Lung RADS 2: Benign appearance. 12 month follow-up screening CT advised.
== END 2023-09-19 10:24 | disposition home or self-care (01) ==
LOC: ANHIMG 10:24
PROVIDERS: PCP Family Medicine; Visit Provider Physician Assistant
DX: Z12.2 Encounter for screening for malignant neoplasm of respiratory organs (principal); Z87.891 Personal history of nicotine dependence
CPT/HCPCS: 71271

== ENCOUNTER 2024-02-01 09:08 | Outpatient (CLI) | payer MEDICARE, SELFPAY ==
[2024-02-01 12:55] LABS: Hematocrit 42.8 % (42.0-52.0); Hemoglobin 13.3 g/dL (14.0-18.0); Mean Corpuscular HGB Conc 31.1 g/dl (32-36); Mean Corpuscular Hemoglobin 29.5 pg (26-34); Mean Corpuscular Volume 94.9 fl (80-100); Platelet Count Result 221 k/mm3 (150-375); Red Blood Count 4.51 M/mm3 (4.6-6.20); Red Cell Distribution Width 13.6 % (11.5-14.5); White Blood Count 6.2 K/mm3 (4.5-10.0)
[2024-02-01 13:13] LABS: Alanine Aminotransferase 19 U/L (6-50); Albumin Level 4.4 g/dL (3.5-5.1); Alkaline Phosphatase 54 U/L (38-126); Anion Gap 4 mmol/L (4-12); Aspartate Amino Transferase 43 U/L (17-59); Bilirubin,Total 0.6 mg/dL (0.2-1.3); Blood Urea Nitrogen 16 mg/dL (9-20); Calcium 9.1 mg/dL (8.4-10.2); Carbon Dioxide 28 mmol/L (22-30); Chloride 102 mmol/L (98-107); Cholesterol 145 mg/dL (0-200); Estimated Glomerular Filt Rate > 60; Glucose 91 mg/dL (65-110); HDL Direct 58 mg/dL; Potassium 4.7 mmol/L (3.4-5.0); Sodium 134 mmol/L (137-145); Triglycerides 117 mg/dL (<150)
[2024-02-01 13:24] LABS: LDL Cholesterol Direct 47 mg/dL
[2024-02-01 13:46] LABS: Prostate Specific Antigen 1.8 ng/mL (< OR = 4.0)
[2024-02-01 13:54] LABS: Iron 79 ug/dL (49-181)
[2024-02-01 16:59] LABS: Percent Iron Saturation 25 % (20-50)
[2024-02-01 18:27] LABS: Hemoglobin A1C 5.8 % (<5.7)
== END 2024-02-01 09:09 | disposition home or self-care (01) ==
LOC: ANHGOSHLAB 09:08
PROVIDERS: PCP Family Medicine; Visit Provider Family Medicine
DX: D64.9 Anemia, unspecified (principal); E66.9 Obesity, unspecified; E78.00 Pure hypercholesterolemia, unspecified; R73.03 Prediabetes; I10 Essential (primary) hypertension; Z12.5 Encounter for screening for malignant neoplasm of prostate
CPT/HCPCS: 36415; 80053; 80061; 82728; 83036; 83540; 83550; 84153; 84443; 85027; G0103

== ENCOUNTER 2024-04-05 09:05 | Outpatient (CLI) | payer MEDICARE, SELFPAY ==
--- NOTE | ~2024-04-05 | US_ITS ---
EXAMINATION: US aorta DATE: 04/05/2024 09:23 INDICATION: Abdominal aortic ectasia. TECHNIQUE: Grayscale, color Doppler, and pulsed Doppler images of the aorta and common iliac arteries were obtained. COMPARISON: Ultrasound 11/30/2022 FINDINGS: The aorta demonstrates a 3.3 cm fusiform infrarenal aneurysm. The right common iliac artery is normal in caliber. The left common iliac artery is normal in caliber. IMPRESSION: 1. 3.3 cm fusiform infrarenal aortic aneurysm. Reviewed, dictated and finalized at location A. L SPLITTER
== END 2024-04-05 09:06 | disposition home or self-care (01) ==
LOC: GOSHIMG 09:06
PROVIDERS: PCP Internal Medicine Cardiovascular Disease; Visit Provider Nurse Practitioner
DX: I71.43 Infrarenal abdominal aortic aneurysm, without rupture (principal)
CPT/HCPCS: 76775

== ENCOUNTER 2024-04-05 09:23 | Outpatient (CLI) | payer MEDICARE, SELFPAY ==
--- OUTSIDE RECORDS SUMMARY | 2024-04-05 09:43 | XMS_ITS | Clinical Summary ---
Author Organization [facility] [place] [address] Address [address] [place] [address] Care Team Providers Care Field Geologist Name Role Phone Deborah Dick DO Primary Care Provider [phone] Allergies No known active allergies Medications aspirin 81 mg enteric coated tablet Take 1 tablet (81 mg total) by mouth daily 90 tablet 3 0 Active empagliflozin (JARDIANCE) 10 mg tablet Take 1 tablet (10 mg total) by mouth daily 30 tablet 11 4 Active ezetimibe (ZETIA) 10 mg tablet TAKE 1 TABLET BY MOUTH DAILY 90 tablet 3 4 Active rosuvastatin (CRESTOR) 40 mg tablet TAKE 1 TABLET BY MOUTH DAILY 90 tablet 3 4 Active carvediloL (COREG) 12.5 mg tablet TAKE 1 TABLET BY MOUTH TWICE DAILY WITH MEALS 180 tablet 3 4 Active losartan (COZAAR) 25 mg tablet Take 1 tablet (25 mg total) by mouth daily 30 tablet 5 03/07/19 26 Active spironolactone (ALDACTONE) 25 mg tablet Take 1 tablet (25 mg total) by mouth daily 30 tablet 5 03/07/19 26 Active sacubitriL-vals mya (ENTRESTO) 24-26 mg tabletIndicatio ns:chronic heart failure Take 1 tablet by mouth 2 (two) times a day 60 tablet 11 4 03/07/19 25 Discontinu ed(Alterna te therapy) Active Problems Problem Noted Date Diagnosed Date Pulmonary HTN 04/25/2023 Mixed hyperlipidemia 08/28/2021 JESSICA (dyspnea on exertion) 08/28/2021 History of tobacco abuse 11/04/2020 Visit for wound check 07/31/2019 H/O ventricular tachycardia 04/19/2019 Chronic fatigue 11/20/2018 H/O ST elevation myocardial infarction 7 Bradycardia 10/13/2015 Overview (05/27/2016): Bradycardia Cardiomyopathy 05/20/2015 Overview (05/27/2016): Cardiomyopathy Coronary artery disease invo lving [place] coronary artery of [place] heart without angina pectoris 05/20/2015 Overview (05/27/2016): Coronary artery disease involving [place] coronary artery of [place] heart without angina pectoris ICD (implantable cardioverter-defibrillator) in place 05/20/2015 Overview (04/24/2020): [employer] Dual ICD. Dx; ICM, [place]. Gen change 07/24/2019-Uppstrom, chronic leads 12/25/2010. Bi[employer]ronik Remote Home Monitoring Q3 mo, office device checks Q1 yr. Device is on ADVISORY for Premature Battery Depletion. 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 Resolved Problems Problem Noted Date Diagnosed Date Resolved Date Tobacco abuse 10/05/2016 11/04/2020 Tobacco dependence syndrome 05/20/2015 11/04/2020 Overview (05/27/2016): Tobacco abuse Dyslipidemia 05/20/2015 08/28/2021 Overview (05/27/2016): Dyslipidemia Encounters Date Type Department Care Team Description 03/07/2024 2:30 PM PLATEN PRESS OPERATOR APPRENTICE Office Visit [facility] [address] [place] [address] Jose Manuel Balbuena MD Ischemic cardiomyopathy (Primary Dx); Coronary artery disease involving [place] coronary artery of [place] heart without angina pectoris; H/O ST elevation myocardial infarction; Status post angioplasty with stent; History of ventricular tachycardia; ICD (implantable cardioverter-defibrill ator) in place 02/01/2024 10:30 AM PLATEN PRESS OPERATOR APPRENTICE Ancillary Procedure [facility] [address] [place] [id number] H/O ventricular tachycardia (Primary Dx); Ischemic cardiomyopathy; ICD (implantable cardioverter-defibrill ator) in place 02/01/2024 Orders Only [facility] [address] [facility] [address] [address] Jose Manuel Balbuena MD Ischemic cardiomyopathy (Primary Dx); ICD (implantable cardioverter-defibrill ator) in place; H/O ventricular tachycardia from Last 3 Months Surgical History Surgery Date Site/Laterality Comments CARDIAC DEFIBRILLATOR PLACEMENT 2010 Implantable Defibrillator Medical History Medical History Date Comments Congestive heart failure (CMS/HCC) (HCC) Congestive Heart Failure Cardiovascular disease Coronary Artery Disease Myocardial infarction (HCC) Myoc ardial infarction Hx Other Medical Arrhythmias Vta ch/V Fib, SCD survivor Family History Medical History Relation Name Comments Heart disease Father Relation Name Status Comments Father (Age 88) Mother Alive Social History Tobacco Use Types Packs/Day Years Used Date Smoking Tobacco: Former Cigarettes Q uit: 08/13/2018 Smokeless Tobacco: Never Comments:Smoking History Pac ks/day: 4 Cigarettes Alcohol Use Standard Drinks/Week Comments Yes 0 (1 standard drink = 0.6 oz pur e alcohol) Sex and Gender Information Value Date Recorded Sex Assigned at Not on file Legal Sex Male 10:20 AM PLATEN PRESS OPERATOR APPRENTICE Gender Identity Not on file Sexual Orientation Not on file Obstetrics History Last Filed Vital Signs Vital Sign Reading Time Taken Comments Blood Pressure 120/80 03/07/2024 2:39 PM PLATEN PRESS OPERATOR APPRENTICE Pulse 71 03/07/2024 2:39 PM PLATEN PRESS OPERATOR APPRENTICE Temperature 36.7 C (98 F) 07/11/2019 11:01 AM CDT Respiratory Rate 12 04/19/2019 9:14 AM PLATEN PRESS OPERATOR APPRENTICE Oxygen Saturation 97% 03/07/2024 2:39 PM PLATEN PRESS OPERATOR APPRENTICE Inhaled Oxygen Concentration - - Weight 82.6 kg (182 lb) 03/07/2024 2:39 PM PLATEN PRESS OPERATOR APPRENTICE Height 167.6 cm (5' 6 ) 03/07/2024 2:39 PM PLATEN PRESS OPERATOR APPRENTICE Body Mass Index 29.38 03/07/2024 2:39 PM PLATEN PRESS OPERATOR APPRENTICE Plan of Treatment Health Maintenance Due Date Last Done Comments Colon Cancer Screening-Colonoscopy 1955 Depression Screening 1955 Fall Risk Assessment 1955 Hepatitis C Screening 1955 Pneumococcal vaccine 65+ (1 of 2 - PCV) 11/27/1959 DTaP/Tdap/Td Vaccine (1 - Tdap) 1964 Hepatitis B Screening 11/27/1971 Zoster Vaccine (1 of 2) 11/27/2003 Abdominal Aortic Aneurysm (AAA) Screen 2018 Well Visit 65+ 2018 Influenza Vaccine (#1) 2023 11/21/2017 Medical Devices Implanted Type Area I&C Tech Device Identifier Shelf Expiration Date Model / Serial / Lot Icd ICD Left: Chest [employer] LUMAX 540 DRT / [id number] / Icd-12/25/2010 Implanted:12/25 (Quantity not on file) ICD Chest [employer] Procedures Procedure Name Priority Date/Time Associated Diagnosis Comments DEVICE CHECK - IN OFFICE Routine 02/01/2024 9:35 AM PLATEN PRESS OPERATOR APPRENTICE Ischemic cardiomyopathy ICD (implantable cardioverter-defibr illator) in place from Last 3 Months Results * DEVICE CHECK - IN OFFICE (02/01/2024 9:35 AM PLATEN PRESS OPERATOR APPRENTICE) Anatomical Region Laterality Modality Other Narrative 02/07/2024 7:40 PM PLATEN PRESS OPERATOR APPRENTICE Biotronik Dual ICD. Dx; ICM, [place]. Gen change 07/24/2019-Uppstrom, chronic leads 12/25/2010. Biotronik Remote Home Monitoring Q3 mo, office device checks Q1 yr. Device is on ADVISORY for Premature battery depletion. Supervising MD: Dr Balbuena. Office DDD ICD interrogation demonstrated appropriate device function. Left pectoral incision well healed without any signs of infection noted. Battery function-3.08V, 73% remaining battery life to ADRIANNA. Charge time 9.6 seconds. Appropriate device and lead functions noted. Presenting rhythm-ASVS (SR). AP-1.0%, TAXI DRIVER-0%. No atrial arrhythmias noted. 2 NSVT episodes noted, no therapies delivered, available iegm's show NSVT. Medications; includes ASA 81 mg, Coreg. See scanned report. Office device check scheduled 05/01/2025. Biotronik remote f/u 05/08/2024. Emi Toney RN Sandeep Melissa MD [facility] PROC EDURES Final Result from Last 3 Months Insurance MEDICARE SOLUTIONS MEDICARE SOLUTIONS Care Teams Field Geologist Relationship Specialty Start Date End Date Deborah Dick DO [address] [place] [address] DR LEMUS [address] [place] [id number] PCP - General Family Medicine 04/28/23
--- OUTSIDE RECORDS SUMMARY | 2024-04-05 09:43 | XMS_ITS | Encounter Summary ---
Author Organization [employer] Address [address] [place] [address] Care Team Providers Care Riveting Machine Operator Name Role Phone Unavailable Primary Care Provider Unavailabl e Encounter Details Date Type Department Care Team (Latest Contact Info) Description 01/18/2001 Outpatient Historical [facility] Umang Le MD [facility] [address] [place] [address] LUMBOSACRAL SPONDYLOSIS (Primary Dx) Social History Tobacco Use Types Packs/Day Years Used Date Smoking Tobacco: Never Assessed Sex and Gender Information Value Date Recorded Sex Assigned at Not on file Legal Sex Male 4:41 AM CITY BAILIFF Gender Identity Not on file Sexual Orientation Not on file documented as of this encounter Plan of Treatment Not on file documented as of this encounter Visit Diagnoses Diagnosis Lumbosacral spondylosis without myelopathy- Primary documented in this encounter
--- OUTSIDE RECORDS SUMMARY | 2024-04-05 09:43 | XMS_ITS | Clinical Summary ---
Author Organization [facility] Address [address] Lim: Epic Prelude ADT [place] [address] Care Team Providers Care Tower Truck Driver Name Role Phone Unavailable Primary Care Provider Unavailabl e Social History Tobacco Use Types Packs/Day Years Used Date Smoking Tobacco: Never Assessed Sex and Gender Information Value Date Recorded Sex Assigned at Not on file Legal Sex Male 4:41 AM COMPRESSED GAS TESTER Gender Identity Not on file Sexual Orientation Not on file Plan of Treatment Health Maintenance Due Date Last Done Comments DTAP/TDAP/TD VACCINES (1 - Tdap) 1972 COLORECTAL SCREENING 1998 Colorectal Cancer Screening 1998 FIT-DNA Q 3 years 1998 FIT/FOBT Q 1 year 1998 Flex Sig/CT Colonography Q 5 years 1998 PNEUMOCOCCAL VACCINE 65+ YEARS (1 of 1 - PCV) 11/27/19 04 ZOSTER VACCINE (1 of 2) 11/27/2003 INFLUENZA VACCINE (#1) 2023 RSV VACCINE (60+ or ) (1 - 1-dose 75+ series) 2028
--- OUTSIDE RECORDS SUMMARY | 2024-04-05 09:43 | XMS_ITS | Encounter Summary ---
Author Organization [facility] Medical Group Address [address] [facility] [address] [place] [address] Care Team Providers Care Rock Crusher Name Role Phone Jm Clark MD Primary Care Provider [phone] Jm Clark MD Primary Care Provider [phone] Deborah Dick DO Primary Care Provider [phone] Deborah Dick DO Primary Care Provider + [phone] Encounter Details Date Type Department Care Team (Late st Contact Info) Description 03/16/2016 Orders Only [facility] ProviderKapil MD [address] [place], [place] [id number] Social History Tobacco Use Types Packs/Day Years Used Date Smoking Tobacco: Light Smoker Cigarettes Last attempted t o quit: 02/21/2010 Comments:Smoking History Pac ks/day: 4 Cigarettes Alcohol Use Standard Drinks/Week Comments Yes 0 (1 standard drink = 0.6 oz pur e alcohol) Sex and Gender Information Value Date Recorded Sex Assigned at Not on file Legal Sex Male 10:20 AM SENIOR OFFICER Gender Identity Not on file Sexual Orientation Not on file documented as of this encounter Plan of Treatment Not on file documented as of this encounter Procedures Procedure Name Priority Date/Time Associated Diagnosis Comments CARDIOLOGY REPORT 03/16/2016 documented in this encounter Results * CARDIOLOGY REPORT (03/16/2016) Anatomical Region Laterality Modality Other Narrative 03/16/2016 Ordered by an unspecified provider. Historical Provider [facility] SAROJ WOLFE Final Result documented in this encounter Visit Diagnoses Not on filedocumented in this encounter Care Teams Rock Crusher Relationship Specialty Start Date End Date Jm Clark MD [address] [place] [address] PCP - General 05/21/16 04/18/19 Jm Clark MD [address] [place] [address] PCP - General 12/24/11 05/20/16 Deborah Dick DO [address] [place] [address] PCP - General Family Medicine 04/19/19 04/27/23 Deborah Dick DO [address] [place] [address] [place] [address] PCP - General Family Medicine 04/28/23 documented as of this encounter
--- OUTSIDE RECORDS SUMMARY | 2024-04-05 09:43 | XMS_ITS | Clinical Summary ---
Author Organization [facility] Address [address] [place] [address] Care Team Providers Care Head Athletic Trainer/Strength Coach Name Role Phone Unavailable Primary Care Provider Unavailabl e Social History Tobacco Use Types Packs/Day Years Used Date Smoking Tobacco: Never Assessed Sex and Gender Information Value Date Recorded Sex Assigned at Not on file Legal Sex Male 5:31 PM CDT Gender Identity Not on file Sexual Orientation Not on file Plan of Treatment Health Maintenance Due Date Last Done Comments Colorectal Cancer Screening Colonoscopy (10 Years) 1955 Hepatitis C 11/27/1971 DTaP, Tdap and Td Vaccines ( 1 - Tdap) 1972 Zoster Vaccines (1 of 2) 11/27/2003 Pneumococcal Vaccine: 65+ Ye ars (1 of 1 - PCV) 2018 COVID-19 Vaccine ( - 2023-2 5 season) 2023 Influenza Adult (#1) 2023 RSV Immunization or 60+ Years (1 - 1-dose 75+ series) 2028 Meningococcal B Vaccine Aged Out No l onger eligible based on patient's age to complete this topic Meningococcal Vaccine Aged Out No jamaal helena eligible based on patient's age to complete this topic RSV Immunizations Under 20 Months Aged Out No longer eligible based on patient's age to complete this topic
--- OUTSIDE RECORDS SUMMARY | 2024-04-05 09:43 | XMS_ITS | Referral Summary ---
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; H/O ST elevation myocardial infarction; Status post angioplasty with stent; History of ventricular tachycardia; ICD (implantable cardioverter-defibrill ator) in place 02/01/2024 Orders Only [facility] Cardiology [facility] [address] [place] [phone] Jose Manuel Balbuena MD Ischemic cardiomyopathy (Primary Dx); ICD (implantable cardioverter-defibrill ator) in place; H/O ventricular tachycardia 02/01/2024 10:30 AM CHECK EMBOSSER Ancillary Procedure [facility] Cardiology [address] [place] [address] [place] [phone] H/O ventricular tachycardia (Primary Dx); Ischemic cardiomyopathy; ICD (implantable cardioverter-defibrill ator) in place from Last 3 Months Allergies No known active allergies Medications aspirin [...] total) by mouth daily 30 tablet 11 5 03/07/19 26 Active spironolactone (ALDACTONE) 25 mg tablet Take 1 tablet (25 mg total) by mouth daily 30 tablet 11 5 03/07/19 26 Active sacubitriL-vals mya (ENTRESTO) [...] (05/27/2016): Cardiomyopathy Coronary artery disease invo lving chehalis coronary artery of chehalis heart without angina pectoris 05/20/2015 Overview (05/27/2016): 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 ICD (implantable cardioverter-defibrillator) [...] (05/27/2016): At risk for amiodarone toxicity with assisted use Resolved Problems Problem Noted Date Diagnosed Date Resolved Date Tobacco abuse 10/05/2016 11/04/2020 Tobacco dependence syndrome 05/20/2015 11/04/2020 Overview (05/27/2016): Tobacco abuse Dyslipidemia 05/20/2015 08/28/2021 Overview (05/27/2016): Dyslipidemia Social History Tobacco Use Types Packs/Day Years Used Date Smoking Tobacco: Former Cigarettes Q uit: 08/13/2018 Smokeless Tobacco: Never Comments:Smoking History Pac ks/day: 4 Cigarettes Alcohol Use Standard Drinks/Week Comments Yes 0 (1 standard drink = 0.6 oz pur e alcohol) Sex and Gender Information Value Date Recorded Sex Assigned at Not on file Legal Sex Male 10:20 AM CHECK EMBOSSER Gender Identity Not on file Sexual Orientation Not on file Last Filed Vital Signs Vital Sign Reading Time Taken Comments Blood Pressure 120/80 03/07/2024 2:39 PM CHECK EMBOSSER Pulse 71 03/07/2024 2:39 PM CHECK EMBOSSER Temperature 36.7 C (98 F) 07/11/2019 11:01 AM CDT Respiratory Rate 12 04/19/2019 9:14 AM CHECK EMBOSSER Oxygen Saturation 97% 03/07/2024 2:39 PM CHECK EMBOSSER Inhaled Oxygen Concentration - - Weight 82.6 kg (182 lb) 03/07/2024 2:39 PM CHECK EMBOSSER Height 167.6 cm (5' 6 ) 03/07/2024 2:39 PM CHECK EMBOSSER Body Mass Index 29.38 03/07/2024 2:39 PM CHECK EMBOSSER Plan of Treatment Not on file Medical Devices Implanted Type Area Cloth Handler Device Identifier Shelf Expiration Date Model / Serial / Lot Icd ICD Left: Chest STARFACE LUMAX 540 DRT / [id number] / Icd-12/25/2010 Implanted:12/25 (Quantity not on file) ICD Chest Total [employer] Procedures Procedure Name Priority Date/Time Associated Diagnosis Comments DEVICE CHECK - IN OFFICE Routine 02/01/2024 9:35 AM CHECK EMBOSSER Ischemic cardiomyopathy ICD (implantable cardioverter-defibr illator) in place from Last 3 Months Results * DEVICE CHECK - IN OFFICE (02/01/2024 9:35 AM CHECK EMBOSSER) Anatomical Region Laterality Modality Other Narrative 02/07/2024 7:40 PM CHECK EMBOSSER Total Prest[employer]ik Dual ICD. Dx; ICM, [place]. Gen change [...] lead functions noted. Presenting rhythm-ASVS (SR). AP-1.0%, CONCRETE STONE FABRICATOR-0%. No atrial arrhythmias noted. 2 NSVT episodes noted, no therapies delivered, available iegm's show NSVT. Medications; includes ASA 81 mg, Coreg. See scanned report. Office device check scheduled 05/01/2025. Biotronik remote f/u 05/08/2024. Emi Toney, RN Sandeep Melissa MD [facility] PROC EDURES Final Result from Last 3 Months Insurance MEDICARE SOLUTIONS MEDICARE SOLUTIONS Care Teams Career Transition Specialist Relationship Specialty Start Date End Date Deborah Dick DO [facility] [facility] [address] [place] [address] PCP - General Family Medicine 04/28/23
[2024-04-05 19:50] LABS: Alanine Aminotransferase 41 U/L (6-50); Albumin Level 4.5 g/dL (3.5-5.1); Alkaline Phosphatase 57 U/L (38-126); Anion Gap 8 mmol/L (4-12); Aspartate Amino Transferase 40 U/L (17-59); Bilirubin,Total 0.5 mg/dL (0.2-1.3); Blood Urea Nitrogen 17 mg/dL (9-20); Calcium 9.9 mg/dL (8.4-10.2); Carbon Dioxide 29 mmol/L (22-30); Chloride 100 mmol/L (98-107); Cholesterol 119 mg/dL (0-200); Estimated Glomerular Filt Rate > 60; Glucose 88 mg/dL (65-110); HDL Direct 48 mg/dL; Potassium 5.3 mmol/L (3.4-5.0); Sodium 137 mmol/L (137-145); Triglycerides 116 mg/dL (<150)
[2024-04-05 20:01] LABS: LDL Cholesterol Direct 48 mg/dL
== END 2024-04-05 09:24 | disposition home or self-care (01) ==
PROVIDERS: PCP Internal Medicine Cardiovascular Disease; Visit Provider Internal Medicine Cardiovascular Disease
DX: I25.5 Ischemic cardiomyopathy (principal)
CPT/HCPCS: 36415; 80053; 80061

== ENCOUNTER 2024-04-11 14:27 | Outpatient (CLI) | payer MEDICARE, SELFPAY ==
--- OUTSIDE RECORDS SUMMARY | 2024-04-11 14:33 | XMS_ITS | Clinical Summary ---
Author Organization [facility] Address [address] 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
--- OUTSIDE RECORDS SUMMARY | 2024-04-11 14:33 | XMS_ITS | Encounter Summary ---
Author Organization [facility] Address [address] [place] [address] Care Team Providers Care Rack Maker Name Role Phone Deborah Dick DO Primary Care Provider [phone]- [phone] Encounter Details Date Type Department Care Team (Late st Contact Info) Description 04/06/2024 Orders Only [facility] Medical [facility] Cardiology [address] [place] [address] Jose Manuel Balbuena MD [address] [facility] [address] [place] [address] Social History Tobacco Use Types Packs/Day Years Used Date Smoking Tobacco: Former Cigarettes Q uit: 08/13/2018 Smokeless Tobacco: Never Comments:Smoking History Pac ks/day: 4 Cigarettes Alcohol Use Standard Drinks/Week Comments Yes 0 (1 standard drink = 0.6 oz pur e alcohol) Sex and Gender Information Value Date Recorded Sex Assigned at Not on file Legal Sex Male 10:20 AM FEED BLENDER Gender Identity Not on file Sexual Orientation Not on file documented as of this encounter Plan of Treatment Not on file documented as of this encounter Visit Diagnoses Not on filedocumented in this encounter Care Teams Rack Maker Relationship Specialty Start Date End Date Deborah Dick DO [facility] [address] [place] [address] PCP - General Family Medicine 04/28/23 documented as of this encounter
--- OUTSIDE RECORDS SUMMARY | 2024-04-11 14:33 | XMS_ITS | Encounter Summary ---
Author Organization [facility] Medical Group Address [address] [facility] [address] [place] [address] Care Team Providers Care Bit Shaver Name Role Phone Jm Clark MD Primary Care Provider [phone] Jm Clark MD Primary Care Provider [phone] Deborah Dick DO Primary Care Provider [phone] Deborah Dick DO Primary Care Provider + [phone] Encounter Details Date Type Department Care Team (Late st Contact Info) Description 03/16/2016 Orders Only [facility] ProviderKapil MD [address] [place] [address] Social History Tobacco Use Types Packs/Day Years Used Date Smoking Tobacco: Light Smoker Cigarettes Last attempted t o quit: 02/21/2010 Comments:Smoking History Pac ks/day: 4 Cigarettes Alcohol Use Standard Drinks/Week Comments Yes 0 (1 standard drink = 0.6 oz pur e alcohol) Sex and Gender Information Value Date Recorded Sex Assigned at Not on file Legal Sex Male 10:20 AM BOTTOM FINISHER Gender Identity Not on file Sexual Orientation [...] on filedocumented in this encounter Care Teams Bit Shaver Relationship Specialty Start Date End Date Jm Clark MD [address] [place] [address] PCP - General 05/21/16 04/18/19 Jm Clark MD [address] [place] [address] PCP - General 12/24/11 05/20/16 Deborah Dick DO [address] [place] [address] PCP - General Family Medicine 04/19/19 04/27/23 Deborah Dick DO [address] [place] [address] [place] [address] PCP - General Family Medicine 04/28/23 documented as of this encounter
--- OUTSIDE RECORDS SUMMARY | 2024-04-11 14:33 | XMS_ITS | Encounter Summary ---
Author Organization [facility] Address [address] [place] [address] Care Team Providers Care Tower Helper Name Role Phone Unavailable Primary Care Provider Unavailabl e Encounter Details Date Type Department Care Team (Latest Contact Info) Description 01/18/2001 Outpatient Historical [facility] Umang Le MD [address] [place] [address] LUMBOSACRAL SPONDYLOSIS (Primary Dx) Social History Tobacco Use Types Packs/Day Years Used Date Smoking Tobacco: Never Assessed Sex and Gender Information Value Date Recorded Sex Assigned at Not on file Legal Sex Male 4:41 AM COUNSELOR AID Gender Identity Not on file Sexual Orientation Not on file documented as of this encounter Plan of Treatment Not on file documented as of this encounter Visit Diagnoses Diagnosis Lumbosacral spondylosis without myelopathy- Primary documented in this encounter
--- OUTSIDE RECORDS SUMMARY | 2024-04-11 14:34 | XMS_ITS | Clinical Summary ---
Author Organization [facility] [address] [facility] [address] Address [address] [place] [address] Care Team Providers Care Hotel Concierge Name Role Phone Deborah Dick DO Primary Care Provider [phone]- [phone] Allergies No known active allergies Medications aspirin 81 mg enteric coated tablet Take 1 tablet (81 mg total) by mouth daily 90 tablet 3 02/20/2020 Active empagliflozin (JARDIANCE) 10 mg tablet Take 1 tablet (10 mg total) by mouth daily 30 tablet 11 10/26/2023 Active ezetimibe (ZETIA) 10 mg tablet TAKE 1 TABLET BY MOUTH DAILY 90 tablet 3 11/07/2023 Active rosuvastatin (CRESTOR) 40 mg tablet TAKE 1 TABLET BY MOUTH DAILY 90 tablet 3 11/07/2023 Active carvediloL (COREG) 12.5 mg tablet TAKE 1 TABLET BY MOUTH TWICE DAILY WITH MEALS 180 tablet 3 11/07/2023 Active losartan (COZAAR) 25 mg tablet Take 1 tablet (25 mg total) by mouth daily 30 tablet 11 03/07/2024 6 Active spironolactone (ALDACTONE) 25 mg tablet Take 1 tablet (25 mg total) by mouth daily 30 tablet 11 03/07/2024 6 Active Active Problems Problem Noted Date Diagnosed Date Pulmonary HTN 04/25/2023 Mixed hyperlipidemia 08/28/2021 JESSICA (dyspnea on exertion) 08/28/2021 History of tobacco abuse 11/04/2020 Visit for wound check 07/31/2019 H/O ventricular tachycardia 04/19/2019 Chronic fatigue 11/20/2018 H/O [address] elevation myocardial infarction 7 Bradycardia 10/13/2015 Overview (05/27/2016): Bradycardia Cardiomyopathy 05/20/2015 Overview (05/27/2016): Cardiomyopathy Coronary artery disease invo lving hamilton coronary artery of hamilton heart without angina pectoris 05/20/2015 Overview (05/27/2016): Coronary artery disease involving hamilton coronary artery of hamilton heart without angina pectoris ICD (implantable cardioverter-defibrillator) [...] Dizziness 11/19/2014 Overview (05/27/2016): Dizziness Drug intoxication ([facility]) 11/19/2014 Overview (05/27/2016): At risk for amiodarone toxicity with halfway use Resolved Problems Problem Noted Date Diagnosed Date Resolved Date Tobacco abuse 10/05/2016 11/04/2020 Tobacco dependence syndrome 05/20/2015 11/04/2020 Overview (05/27/2016): Tobacco abuse Dyslipidemia 05/20/2015 08/28/2021 Overview (05/27/2016): Dyslipidemia Encounters Date Type Department Care Team Description 04/06/2024 Telephone [facility] Cardiology [address] [place] [address] Jose Manuel Balbuena MD 04/06/2024 Orders Only [facility] Cardiology [address] [place] [address] [place] [phone] Jose Manuel Balbuena MD 03/07/2024 2:30 PM LEAD ATHLETE Office Visit [facility] Cardiology [address] [place] [address] [place] [phone] Jose Manuel Balbuena MD Ischemic cardiomyopathy (Primary Dx); Coronary artery disease involving hamilton coronary artery of hamilton heart without angina pectoris; H/O ST elevation myocardial infarction; Status post angioplasty with stent; History of ventricular tachycardia; ICD (implantable cardioverter-defibrill ator) in place 02/01/2024 10:30 AM LEAD ATHLETE Ancillary Procedure [facility] Cardiology [address] [place] [address] [place] [phone] H/O ventricular tachycardia (Primary Dx); Ischemic cardiomyopathy; ICD (implantable cardioverter-defibrill ator) in place 02/01/2024 Orders Only [facility] Cardiology [facility] [facility] [address] [place] [phone] Jose Manuel Balbuena MD Ischemic cardiomyopathy (Primary [...] on file Legal Sex Male 10:20 AM LEAD ATHLETE Gender Identity Not on file Sexual Orientation Not on file Obstetrics History Last Filed Vital Signs Vital Sign Reading Time Taken Comments Blood Pressure 120/80 03/07/2024 2:39 PM LEAD ATHLETE Pulse 71 03/07/2024 2:39 PM LEAD ATHLETE Temperature 36.7 C (98 F) 07/11/2019 11:01 AM CDT Respiratory Rate 12 04/19/2019 9:14 AM LEAD ATHLETE Oxygen Saturation 97% 03/07/2024 2:39 PM LEAD ATHLETE Inhaled Oxygen Concentration - - Weight 82.6 kg (182 lb) 03/07/2024 2:39 PM LEAD ATHLETE Height 167.6 cm (5' 6 ) 03/07/2024 2:39 PM LEAD ATHLETE Body Mass Index 29.38 03/07/2024 2:39 PM LEAD ATHLETE Plan of Treatment Health Maintenance Due Date Last Done Comments Colon Cancer Screening-Colonoscopy 1955 Depression Screening 1955 Fall Risk Assessment 1955 Hepatitis C Screening 1955 DTaP/Tdap/Td Vaccine (1 - Tdap) 1964 Hepatitis B Screening 11/27/1971 Pneumococcal vaccine 65+ (1 of 2 - PCV) 1972 Zoster Vaccine (1 of 2) 11/27/2003 Abdominal Aortic Aneurysm (AAA) Screen 2018 Well Visit 65+ 2018 Influenza Vaccine (#1) 2023 11/21/2017 Medical Devices Implanted Type Area Policy Checker Device Identifier Shelf Expiration Date Model / Serial / Lot Icd ICD Left: Chest [employer] LUMAX 540 DRT / [id number] / Icd-12/25/2010 Implanted:12/25 (Quantity not on file) ICD Chest [employer] Procedures Procedure Name Priority Date/Time Associated Diagnosis Comments DEVICE CHECK - IN OFFICE Routine 02/01/2024 9:35 AM LEAD ATHLETE Ischemic cardiomyopathy ICD (implantable cardioverter-defibr illator) in place from Last 3 Months Results * DEVICE CHECK - IN OFFICE (02/01/2024 9:35 AM LEAD ATHLETE) Anatomical Region Laterality Modality Other Narrative 02/07/2024 7:40 PM LEAD ATHLETE Bi[employer]ik Dual ICD. Dx; ICM, [place]. Gen [...] lead functions noted. Presenting rhythm-ASVS (SR). AP-1.0%, GATE KEEPER-0%. No atrial arrhythmias noted. 2 NSVT episodes noted, no therapies delivered, available iegm's show NSVT. Medications; includes ASA 81 mg, Coreg. See scanned report. Office device check scheduled 05/01/2025. [employer] remote f/u 05/08/2024. Emi Toney RN Sandeep Melissa MD [facility] CARDI[facility] SERVICES PROC EDURES Final Result from Last 3 Months Insurance [place] [address] [place] [address] Care Teams Hotel Concierge Relationship Specialty Start Date End Date Deborah Dick DO [facility] [facility] [address] [place] [address] PCP - General Family Medicine 04/28/23
--- OUTSIDE RECORDS SUMMARY | 2024-04-11 14:34 | XMS_ITS | Clinical Summary ---
Author Organization [facility] Address [address] [place] [address] Care Team Providers Care Certified Scrum Master Name Role Phone Unavailable Primary Care Provider [...]
--- OUTSIDE RECORDS SUMMARY | 2024-04-11 14:34 | XMS_ITS | Referral Summary ---
Author Organization [facility] [place] [address] [place] [phone] Care Team Providers Care Veterinarian Laboratory Animal Care Name Role Phone Deborah Dick DO Primary Care Provider [phone]- [phone] Encounters Date Type Department Care Team Description 04/06/2024 Telephone [facility] Cardiology [address] [place] [address] [place] [phone] Jose Manuel Balbuena MD 04/06/2024 Orders Only [facility] Cardiology [address] [place] [address] [place] [phone] Jose Manuel Balbuena MD 03/07/2024 2:30 PM GEM CUTTER Office Visit [place] [address] [place] [phone] Jose Manuel Balbuena MD Ischemic cardiomyopathy (Primary Dx); Coronary artery disease involving viejas coronary artery of viejas heart without angina pectoris; H/O ST elevation myocardial infarction; Status post angioplasty with stent; History of ventricular tachycardia; ICD (implantable cardioverter-defibrill ator) in place 02/01/2024 Orders Only [facility] Cardiology [address] [place] [address] [place] [phone] Jose Manuel Balbuena MD Ischemic cardiomyopathy (Primary Dx); ICD (implantable cardioverter-defibrill ator) in place; H/O ventricular tachycardia 02/01/2024 10:30 AM GEM CUTTER Ancillary Procedure [facility] Cardiology [address] [place] [address] [place] [phone] H/O ventricular tachycardia (Primary Dx); Ischemic [...] (05/27/2016): Cardiomyopathy Coronary artery disease invo lving viejas coronary artery of viejas heart without angina pectoris 05/20/2015 Overview (05/27/2016): Coronary artery disease involving viejas coronary artery of viejas heart without angina pectoris ICD (implantable cardioverter-defibrillator) [...] (05/27/2016): At risk for amiodarone toxicity with bed bug exterminator use Resolved Problems Problem Noted Date Diagnosed [...] on file Legal Sex Male 10:20 AM GEM CUTTER Gender Identity Not on file Sexual Orientation Not on file Last Filed Vital Signs Vital Sign Reading Time Taken Comments Blood Pressure 120/80 03/07/2024 2:39 PM GEM CUTTER Pulse 71 03/07/2024 2:39 PM GEM CUTTER Temperature 36.7 C (98 F) 07/11/2019 11:01 AM CDT Respiratory Rate 12 04/19/2019 9:14 AM GEM CUTTER Oxygen Saturation 97% 03/07/2024 2:39 PM GEM CUTTER Inhaled Oxygen Concentration - - Weight 82.6 kg (182 lb) 03/07/2024 2:39 PM GEM CUTTER Height 167.6 cm (5' 6 ) 03/07/2024 2:39 PM GEM CUTTER Body Mass Index 29.38 03/07/2024 2:39 PM GEM CUTTER Plan of Treatment Not on file Medical Devices Implanted Type Area Vegetable Picker Device Identifier Shelf Expiration Date Model / Serial / Lot Icd ICD Left: Chest [employer]os LUMAX 540 DRT / [id number] / Icd-12/25/2010 Implanted:12/25 (Quantity not on file) ICD Chest [employer] Procedures Procedure Name Priority Date/Time Associated Diagnosis Comments DEVICE CHECK - IN OFFICE Routine 02/01/2024 9:35 AM GEM CUTTER Ischemic cardiomyopathy ICD (implantable cardioverter-defibr illator) in place from Last 3 Months Results * DEVICE CHECK - IN OFFICE (02/01/2024 9:35 AM GEM CUTTER) Anatomical Region Laterality Modality Other Narrative 02/07/2024 7:40 PM GEM CUTTER Biotronik Dual ICD. Dx; ICM, VT. Gen [...] lead functions noted. Presenting rhythm-ASVS (SR). AP-1.0%, CREDIT AND LOAN COLLECTIONS SUPERVISOR-0%. No atrial arrhythmias noted. 2 NSVT episodes noted, no therapies delivered, available iegm's show NSVT. Medications; includes ASA 81 mg, Coreg. See scanned report. Office device check scheduled 05/01/2025. Biotronik remote f/u 05/08/2024. Emi Toney RN Sandeep Melissa MD CV CARDIAC SERVICES PROC EDURES Final Result from Last 3 Months Insurance MEDICARE SOLUTIONS MEDICARE SOLUTIONS Care Teams Veterinarian Laboratory Animal Care Relationship Specialty Start Date End Date Deborah Dick DO [address] [place] [address] [place] [address] PCP - General Family Medicine 04/28/23
[2024-04-11 20:58] LABS: Anion Gap 11 mmol/L (4-12); Blood Urea Nitrogen 21 mg/dL (9-20); Calcium 9.6 mg/dL (8.4-10.2); Carbon Dioxide 25 mmol/L (22-30); Chloride 99 mmol/L (98-107); Estimated Glomerular Filt Rate > 60; Glucose 94 mg/dL (65-110); Potassium 4.6 mmol/L (3.4-5.0); Sodium 135 mmol/L (137-145)
== END 2024-04-11 14:28 | disposition home or self-care (01) ==
LOC: ANHGOSHLAB 14:30
PROVIDERS: PCP Family Medicine; Visit Provider Internal Medicine Cardiovascular Disease
DX: E87.5 Hyperkalemia (principal)
CPT/HCPCS: 36415; 80048

== ENCOUNTER 2024-06-05 09:57 | Outpatient (CLI) | payer MEDICARE, SELFPAY ==
--- OUTSIDE RECORDS SUMMARY | 2024-06-05 10:43 | XMS_ITS | Clinical Summary ---
Author Organization [facility] [address] Address [address] [facility] [address] [place] [address] Care Team Providers Care Fish Farmer Name Role Phone Deborah Dick DO Primary Care Provider [phone]- [phone] Allergies No known active allergies Medications aspirin 81 mg enteric coated tablet Take 1 tablet (81 mg total) by mouth daily 90 tablet 3 0 Active empagliflozin (JARDIANCE) 10 mg tablet Take 1 tablet (10 mg total) by mouth daily 30 tablet 11 4 Active Additional Information Patient not taking.Reported on 05/02/2024 ezetimibe (ZETIA) 10 mg tablet TAKE 1 [...] daily 30 tablet 5 03/07/19 26 Active Active Problems Problem Noted Date Diagnosed Date Aortic aneurysm, descending 05/04/2024 Assessment & Plan (05/04/2024 11:03 AM CDT): 3.3 cm infrarenal abdominal aortic aneurysms found on duplex. Discussed findings and management of AAA with the patient and his with recommendation for ongoing surveillance aortoiliac duplex in 1 year. Prominent popliteal artery pulse, lower extremity arterial duplex ordered to rule out popliteal artery aneurysms. 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 05/20/2015 Overview (05/27/2016): Coronary artery disease involving bill moore's slough coronary artery of bill moore's slough heart without angina pectoris ICD (implantable cardioverter-defibrillator) [...] hypertension 05/20/2015 Overview (05/27/2016): HTN (hypertension), benign Assessment & Plan (05/04/2024 11:01 AM CDT): Stable continue losartan Dizziness 11/19/2014 Overview (05/27/2016): Dizziness Drug intoxication 11/19/2014 Overview (05/27/2016): At risk for amiodarone toxicity with roasterman use Resolved Problems Problem Noted Date Diagnosed Date Resolved Date Tobacco abuse 10/05/2016 11/04/2020 Tobacco dependence syndrome 05/20/2015 11/04/2020 Overview (05/27/2016): Tobacco abuse Dyslipidemia 05/20/2015 08/28/2021 Overview (05/27/2016): Dyslipidemia Encounters Date Type Department Care Team Description 05/16/2024 Telephone [facility] Vascular and Vein Surgery [address] [place] [phone] Norah Ayala 05/14/2024 Telephone [facility] Vascular and Vein Surgery [address] [place] [phone] Janice Contreras MA 05/14/2024 Orders Only [facility] Vascular at [address] [place] [phone] Marilyn Porter MD Infrarenal abdominal aortic aneurysm (AAA) without rupture (Primary Dx); Other specified symptoms and signs involving the circulatory and respiratory systems 05/09/2024 11:00 AM CDT Ancillary Procedure [facility] Vascular and Vein Surgery at [address] [place] [address] 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 11:00 AM CDT Ancillary Procedure [facility] Vascular and Vein Surgery at [address] [place] [address] 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 7:30 AM CDT Ancillary Procedure [facility] Cardiology [address] [facility] [address] [place], [place] [address] [place] [address] ICD (implantable cardioverter-defibrill ator) in place [Z95.810] (Primary Dx); Ischemic cardiomyopathy; Ventricular tachycardia (HCC) 05/08/2024 Orders Only [facility] Cardiology [address] [place] [address] [address] [facility] [place] [address] Jose Manuel Balbuena MD ICD (implantable cardioverter-defibrill ator) in place (Primary Dx); H/O ventricular tachycardia; Ischemic cardiomyopathy 05/02/2024 10:45 AM CDT Office Visit [facility] Vascular at [address] [place] [address] Marilyn Porter MD Infrarenal abdominal aortic aneurysm (AAA) without rupture (Primary Dx); Mixed hyperlipidemia; Benign hypertension 05/02/2024 Orders Only [facility] Vascular at [address] [place] [address] Marilyn Porter MD Popliteal artery aneurysm (Primary Dx); Infrarenal abdominal aortic aneurysm (AAA) without rupture 04/24/2024 Results Follow-Up [facility] Cardiology [address] [place] [address] [address] [facility] [place] [address] Jose Manuel Balbuena MD 04/17/2024 Orders Only [facility] Cardiology [facility] [address] [place] [phone] Jose Manuel Balbuena MD 04/12/2024 Results Follow-Up [facility] Cardiology [address] [place] [address] [address] [facility] [place] [address] Jose Manuel Balbuena MD 04/06/2024 Telephone [facility] Cardiology [facility] [address] [place] [phone] Jose Manuel Balbuena MD 04/06/2024 Orders Only [facility] Cardiology [address] [place] [address] [address] [place] [phone] Jose Manuel Balbuena MD 04/05/2024 9:10 AM KIDNEY TRIMMER - 04/05/2024 11:59 PM KIDNEY TRIMMER Hospital Encounter [facility] [employer] [address] [place] [address] Discharge Disposition: Discharge to home or self care 03/07/2024 2:30 PM KIDNEY TRIMMER Office Visit [facility] Cardiology [address] [place] [address] Jose Manuel Balbuena MD Ischemic cardiomyopathy (Primary Dx); Coronary artery disease involving bill moore's slough coronary artery of bill moore's slough heart without angina pectoris; H/O ST elevation myocardial infarction; Status post angioplasty with stent; History of ventricular tachycardia; ICD (implantable cardioverter-defibrill ator) in place from Last 3 Months Surgical History Surgery Date Site/Laterality Comments CARDIAC DEFIBRILLATOR PLACEMENT 2010 Implantable Defibrillator Medical History Medical History Date Comments Congestive heart failure (HCC) C ongestive Heart Failure Cardiovascular disease Coronary Artery Disease [...] on file Legal Sex Male 10:20 AM KIDNEY TRIMMER Gender Identity Not on file Sexual Orientation Not on file Obstetrics History Last Filed Vital Signs Vital Sign Reading Time Taken Comments Blood Pressure 143/90 05/02/2024 10:31 AM CDT Pulse 59 05/02/2024 10:31 AM CDT Temperature 36.7 C (98 F) 07/11/2019 11:01 AM CDT Respiratory Rate 12 04/19/2019 9:14 AM KIDNEY TRIMMER Oxygen Saturation 97% 05/02/2024 10:31 AM CDT Inhaled Oxygen Concentration - - Weight 80.7 kg (178 lb) 05/02/2024 10:31 AM CDT Height 167.6 cm (5' 6 ) 05/02/2024 10:31 AM CDT Body Mass Index 28.73 05/02/2024 10:31 AM CDT Plan of Treatment Health Maintenance Due Date Last Done Comments Colon Cancer Screening-Colonoscopy 1955 Depression Screening 1955 Fall Risk Assessment 1955 Hepatitis C Screening 1955 DTaP/Tdap/Td Vaccine (1 - Tdap) 1964 Hepatitis B Screening 11/27/1971 Pneumococcal vaccine 65+ (1 of 2 - PCV) 1972 Zoster Vaccine (1 of 2) 11/27/2003 Well Visit 65+ 2018 Influenza Vaccine (Season Ended) 2024 11/22/19 18 Abdominal Aortic Aneurysm (A AA) Screen Completed 05/14/2024, 05/02/2024, 05/02/2024 Medical Devices Implanted Type Area Wind Turbine Electrical Engineer Device Identifier Shelf Expiration Date Model / Serial / Lot Icd ICD Left: Chest [employer] LUMAX 540 DRT / [id number] / Icd-12/25/2010 Implanted:12/25 (Quantity not on file) ICD Chest [employer] Procedures Procedure Name Priority Date/Time Associated Diagnosis Comments VL US ARTERIAL DUPLEX LOWER EXTREMITY BILATERAL Schedule Routine, Read Routine (OP Routine) 05/09/2024 11:31 AM CDT Popliteal artery aneurysm US ANNAMARIE Schedule Routine, Read Routine (OP Routine) 05/09/2024 11:31 AM CDT Popliteal artery aneurysm DEVICE CHECK - REMOTE Routine 05/08/2024 1:28 PM CDT Ischemic cardiomyopathy Ventricular tachycardia (HCC) BASIC METABOLIC PANEL Routine 04/17/2024 11:28 AM KIDNEY TRIMMER US TRANSFER OF OUTSIDE FILMS Routine 04/05/2024 9:10 AM KIDNEY TRIMMER BASIC METABOLIC PANEL Routine 04/05/2024 Hyperkalemia from Last 3 Months Results * US Arterial Duplex Lower Extremity Bilateral (05/09/2024 11:31 AM CDT) Anatomical Region Laterality Modality Vascular Bilateral Ultrasound 05/09/2024 10:4 7 AM CDT Narrative 05/14/2024 8:27 AM CDT Vascular & Vein Surgery [address] [facility] [place] [address] Lower Extremity Arterial Duplex Report Patient Name: PARISHBERNARD T : 1955 (68y 5m) Gender: M Study Date: 05/09/2024 10:47:46 AM Ht(Inch): Wt(Lb): BSA: Psychological Stress Evaluator: ELOISA Location: [facility] Order Provider: MARILYN PORTER Quality: Adequate Ref Provider: MARILYN PORTER PROCEDURES: Arterial Report: A non-invasive vascular imaging study of the bilateral lower extremity arteries was performed using B-mode ultrasound, color flow, and spectral Doppler. Limited study due to aneurysm evaluation. INDICATIONS: Prominent Rt popliteal artery with hx of AAA. HISTORY: HTN. HLD. COPD. AAA. CAD-NC S/P stents. ICD. Former smoker. COMPARISONS: No previous exams. MEASUREMENTS: Right Value Left Value Rt INDUSTRIAL CHEMISTRY TEACHER Dst PSV 149.00 cm/sec Lt INDUSTRIAL CHEMISTRY TEACHER Dst PSV 189.00 cm/sec Rt Pop Dst PSV 32.00 cm/sec Lt Pop Dst PSV 39.00 cm/sec FINDINGS: Right: Biphasic arteries include the right common femoral artery and popliteal artery. Right common femoral artery diameter measures 0.97 x 0.99 cm, distal superficial femoral artery measures 0.93 x 0.99 cm, mid popliteal artery measures 0.91 x 1.0 cm. Left: Biphasic arteries include the left common femoral artery and popliteal artery. Left common femoral artery diameter measures 0.98 x 0.88 cm, mid popliteal artery measures 0.75 x 0.84 cm. CONCLUSION: 1. Ectatic bilateral common femoral arteries measuring 0.97cm. 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 ATTESTATION: I have reviewed and interpreted the pertinent images and measurements of this study. I attest to the conclusions in the final report that is provided above. Electronically Signed By: Marilyn Porter MD 05/14/2024 7:33:18 AM CDT Procedure Note Marilyn Porter MD - 05/14/2024 Vascular & Vein Surgery [address] [place] [address] Lower Extremity Arterial Duplex Report Patient Name: BERNARD LUGO T : 1955 (68y 5m) Gender: M Study Date: 05/09/2024 10:47:46 AM Ht(Inch): Wt(Lb): BSA: Psychological Stress Evaluator: ELOISA Location: [facility] Order Provider: MARILYN PORTER Quality: Adequate Ref Provider: MARILYN PORTER PROCEDURES: Arterial Report: A non-invasive vascular imaging study of the bilaterallower extremity arteries was performed using B-mode ultrasound, color flow, and spectralDoppler. Limited study due to aneurysm evaluation. INDICATIONS: Prominent Rt popliteal artery with hx of AAA. HISTORY: HTN. HLD. COPD. AAA. CAD-NC S/P stents. ICD. Former smoker. COMPARISONS: No previous exams. MEASUREMENTS: Right Value Left Value Rt INDUSTRIAL CHEMISTRY TEACHER Dst PSV 149.00 cm/sec Lt INDUSTRIAL CHEMISTRY TEACHER Dst PSV 189.00 cm/sec Rt Pop Dst PSV 32.00 cm/sec Lt Pop Dst PSV 39.00 cm/sec FINDINGS: Right: Biphasic arteries include the right common femoral artery andpopliteal artery. Right common femoral artery diameter measures 0.97 x 0.99 cm, distalsuperficial femoral artery measures 0.93 x 0.99 cm, mid popliteal artery measures 0.91 x 1.0cm. Left: Biphasic arteries include the left common femoral artery andpopliteal artery. Left common femoral artery diameter measures 0.98 x 0.88 cm, mid poplitealartery measures 0.75 x 0.84 cm. CONCLUSION: 1. Ectatic bilateral common femoral arteries measuring 0.97cm. Rightpopliteal artery aneurysm measuring 1 cm. ATTESTATION: I have reviewed and interpreted the pertinent images and measurements ofthis study. I attest to the conclusions in the final report that is provided above. Electronically Signed By: Marilyn Porter MD 05/14/2024 7:33:18 AM CDT us Marilyn Porter MD IMG US PROCEDURES Final Result * US ANNAMARIE (05/09/2024 11:31 AM CDT) Anatomical Region Laterality Modality Vascular N/A Ultrasound 05/09/2024 10:4 5 AM CDT Narrative 05/14/2024 8:27 AM CDT Vascular & Vein Surgery [address] [place] [address] Lower Extremity Arterial Doppler Report Patient Name: BERNARD LUGO T : 1955 Study Date: 05/09/2024 10:45:00 AM Gender: M Psychological Stress Evaluator: Rose Berger RVT Location: [facility] Ref Provider: MARILYN PORTER Quality: Adequate Order Provider: MARILYN PORTER PROCEDURES: Arterial Report: Ankle - Brachial Index Doppler exam. INDICATIONS: Prominent Rt pop art on exam; hx of AAA. HISTORY: HTN. HLD. AAA. COPD. CAD-NC S/P stents. ICD. Former smoker. COMPARISONS: No previous exams. MEASUREMENTS: Right Value Left Value Rt Brachial Pressure 133 mmHg Lt Brachial Pressure 138 mmHg Rt COIN DEALER Pressure 114 mmHg Lt COIN DEALER Pressure 98 mmHg Rt DPA Pressure 110 mmHg Lt DPA Pressure 106 mmHg Rt PT ANNAMARIE Resting 0.83 Lt PT ANNAMARIE Resting 0.71 Rt DP ANNAMARIE Resting 0.8 Lt DP ANNAMARIE Resting 0.77 FINDINGS: Right Posterior Tibial Artery Analysis: The posterior tibial waveform is biphasic. Right Anterior Tibial Artery Analysis: The anterior tibial waveform is monophasic. Left Posterior Tibial Artery Analysis: The posterior tibial waveform is monophasic. Left Anterior Tibial Artery Analysis: The anterior tibial waveform is biphasic. CONCLUSIONS: 1. Ankle-brachial index of 0.8-0.9 is consistent with mild occlusive arterial disease in the right lower extremity. 2. Ankle-brachial index of 0.5-0.8 is consistent with claudication and a moderate occlusive arterial disease in the left lower extremity. ATTESTATION: I have reviewed and interpreted the pertinent images and measurements of this study. I attest to the conclusions in the final report that is provided above. Electronically Signed By: Marilyn Porter MD 05/14/2024 7:33:38 AM CDT Procedure Note Marilyn Porter MD - 05/14/2024 Vascular & Vein Surgery [address] [place] [address] [place] [address] Lower Extremity Arterial Doppler Report Patient Name: BERNARD LUGO T : 1955 Study Date: 05/09/2024 10:45:00 AM Gender: M Psychological Stress Evaluator: Rose Berger RVT Location: [facility] Ref Provider: MARILYN PORTER Quality: Adequate Order Provider: MARILYN PORTER PROCEDURES: Arterial Report: Ankle - Brachial Index Doppler exam. INDICATIONS: Prominent Rt pop art on exam; hx of AAA. HISTORY: HTN. HLD. AAA. COPD. CAD-NC S/P stents. ICD. Former smoker. COMPARISONS: No previous exams. MEASUREMENTS: Right Value Left Value Rt Brachial Pressure 133 mmHg Lt Brachial Pressure 138 mmHg Rt COIN DEALER Pressure 114 mmHg Lt COIN DEALER Pressure 98 mmHg Rt DPA Pressure 110 mmHg Lt DPA Pressure 106 mmHg Rt PT ANNAMARIE Resting 0.83 Lt PT ANNAMARIE Resting 0.71 Rt DP ANNAMARIE Resting 0.8 Lt DP ANNAMARIE Resting 0.77 FINDINGS: Right Posterior Tibial Artery Analysis: The posterior tibial waveform is biphasic. Right Anterior Tibial Artery Analysis: The anterior tibial waveform is monophasic. Left Posterior Tibial Artery Analysis: The posterior tibial waveform is monophasic. Left Anterior Tibial Artery Analysis: The anterior tibial waveform is biphasic. CONCLUSIONS: 1. Ankle-brachial index of 0.8-0.9 is consistent with mild occlusivearterial disease in the right lower extremity. 2. Ankle-brachial index of 0.5-0.8 is consistent with claudication and amoderate occlusive arterial disease in the left lower extremity. ATTESTATION: I have reviewed and interpreted the pertinent images and measurements ofthis study. I attest to the conclusions in the final report that is provided above. Electronically Signed By: Marilyn Porter MD 05/14/2024 7:33:38 AM CDT Marilyn Porter MD IM US PROCEDURES Final Result * DEVICE CHECK - REMOTE (05/08/2024 1:28 PM CDT) Anatomical Region Laterality Modality Other Narrative 05/13/2024 8:52 PM CDT Biotronik Dual ICD. Dx; ICM, VT. Gen change 07/24/2019-Uppstrom, chronic leads 12/25/2010. Biotronik Remote Home Monitoring Q3 mo, office device checks Q1 yr. Device is on ADVISORY for Premature battery depletion. Routine DDD ICD remote. Normal device function. Battery function-3.11V, KHADIJAH-71% remaining battery life to ADRIANNA. Charge time-9.6 seconds. Appropriate lead measurements noted. Presenting rhythm: -VS/AP-VS. AP-1%, TELECOM BILLING ANALYST-0%. No AT/AF episodes noted. 1 Ventricular tachy detection noted on 03/23/2024, iegm 1:1 rhythm, suggestive of SVT, no therapies delivered. Medications; Coreg, ASA. See scanned report. Office device f/u 05/01/2025. Biotronik remote f/u 08/07/2024. Emi Toney RN Sandeep Melissa MD CV CARDIAC SERVICES PROC EDURES Final Result * Basic metabolic panel (04/17/2024 11:28 AM KIDNEY TRIMMER) Blood Result [facility] Jose Manuel Balbuena MD LAB BLOOD ORDERABLES Final Resul t * US Outside Reference (04/05/2024 9:10 AM KIDNEY TRIMMER) Narrative RAD_[facility]_M[facility] - 05/02/2024 11:05 AM CDT This order has been auto-finalized and does not contain a result. us Provider Transcribed Order IMG US PROCEDURES Fin al Result RAD_CLARESTEFANÍA_MHB_MHE * Basic metabolic panel (04/05/2024) Blood 04/05/2024 us Jose Manuel Balbuena MD LAB BLOOD ORDERABLES Final Resul t EXTERNAL LAB from Last 3 Months Insurance UHC MEDICARE ADVANTAGE [facility] MEDICARE ADVANTAGE Care Teams Fish Farmer Relationship Specialty Start Date End Date Vernace, Deborah Hailey, DO [address] [facility] [address] [id number] PCP - General Family Medicine 04/28/23
--- OUTSIDE RECORDS SUMMARY | 2024-06-05 10:43 | XMS_ITS | Encounter Summary ---
Author Organization [facility] Address [address] [facility] [address] [place] [address] Care Team Providers Care Swamper Name Role Phone Jm Clark MD Primary Care Provider [phone] Jm Clark MD Primary Care Provider [phone] Deborah Dick DO Primary Care Provider [phone] Deborah Dick DO Primary Care Provider + [phone] Encounter Details Date Type Department Care Team (Late st Contact Info) Description 03/16/2016 Orders Only [facility] ProviderKapil MD [address] [place] [address] Social History Tobacco Use Types Packs/Day Years Used Date Smoking Tobacco: Light Smoker Cigarettes Last attempted t o quit: 02/21/2010 Comments:Smoking History Pac ks/day: 4 Cigarettes Alcohol Use Standard Drinks/Week Comments Yes 0 (1 standard drink = 0.6 oz pur e alcohol) Sex and Gender Information Value Date Recorded Sex Assigned at Not on file Legal Sex Male 10:20 AM IS ANALYST Gender Identity Not on file Sexual Orientation [...] on filedocumented in this encounter Care Teams Swamper Relationship Specialty Start Date End Date Jm Clark MD [address] [place] [address] PCP - General 05/21/16 04/18/19 Jm Clark MD [address] [place] [address] PCP - General 12/24/11 05/20/16 Deborah Dick DO [address] [place] [address] PCP - General Family Medicine 04/19/19 04/27/23 Deborah Dick DO [address] [place] [address] [place] [address] PCP - General Family Medicine 04/28/23 documented as of this encounter
--- OUTSIDE RECORDS SUMMARY | 2024-06-05 10:43 | XMS_ITS | Referral Summary ---
Author Organization [facility] [place] [address] Address [address] [place] [address] Care Team Providers Care Biometric Screener Name Role Phone Deborah Dick DO Primary Care Provider +1- [phone] Encounters Date Type Department Care Team Description 05/16/2024 Telephone [facility] Vascular and Vein Surgery [address] [place] [address] Norah Ayala 05/14/2024 Telephone [facility] Vascular and Vein Surgery [address] [place] [address] Janice Contreras MA 05/14/2024 Orders Only [facility] Vascular at [address] [place] [address] Marilyn Porter MD Infrarenal abdominal aortic aneurysm (AAA) without rupture (Primary Dx); Other specified symptoms and signs involving the circulatory and respiratory systems 05/09/2024 11:00 AM CDT Ancillary Procedure [facility] Vascular and Vein Surgery at [address] [place] [address] 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 11:00 AM CDT Ancillary Procedure [facility] Vascular and Vein Surgery at [address] [place] [address] 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 Orders Only [facility] Cardiology [address] [place] [address] Suite [facility] IJEOMA [place] [phone] Jose Manuel Balbuena MD ICD (implantable cardioverter-defibrill ator) in place (Primary Dx); H/O ventricular tachycardia; Ischemic cardiomyopathy 05/08/2024 7:30 AM CDT Ancillary Procedure [facility] Cardiology [address] [place] [address] [place], [place] [address] [place] [address] ICD (implantable cardioverter-defibrill ator) in place [Z95.810] (Primary Dx); Ischemic cardiomyopathy; Ventricular tachycardia (HCC) 05/02/2024 Orders Only [facility] Vascular at [address] [place] [address] Marilyn Porter MD Popliteal artery aneurysm (Primary Dx); Infrarenal abdominal aortic aneurysm (AAA) without rupture 05/02/2024 10:45 AM CDT Office Visit [facility] Vascular at [address] [place] [address] Marilyn Porter MD Infrarenal abdominal aortic aneurysm (AAA) without rupture (Primary Dx); Mixed hyperlipidemia; Benign hypertension 04/24/2024 Results Follow-Up [facility] Cardiology [address] [place] [address] [place] [address] [place] [address] Jose Manuel Balbuena MD 04/17/2024 Orders Only [facility] Cardiology [address] [place] [address] [place] [address] Jose Manuel Balbuena MD 04/12/2024 Results Follow-Up [facility] Cardiology [address] [place] [address] [place], [place] [address] [place] [address] Jose Manuel Balbuena MD 04/06/2024 Telephone [facility] Cardiology [address] [place] [address] [address] [place] [address] Jose Manuel Balbuena MD 04/06/2024 Orders Only [facility] Cardiology [address] [place] [address] [address] [place] [address] Jose Manuel Balbuena MD 04/05/2024 9:10 AM GLOBAL PROGRAM MANAGER - 04/05/2024 11:59 PM GLOBAL PROGRAM MANAGER Hospital Encounter [facility] [employer] [address] [place] [address] Discharge Disposition: Discharge to home or self care 03/07/2024 2:30 PM GLOBAL PROGRAM MANAGER Office Visit [facility] Cardiology [address] [place] [address] Jose Manuel Balbuena MD Ischemic cardiomyopathy (Primary Dx); Coronary artery disease involving [place] coronary artery of [place] heart without angina pectoris; H/O ST elevation [...] (05/27/2016): Cardiomyopathy Coronary artery disease invo lving [place] coronary artery of [place] heart without angina pectoris 05/20/2015 Overview (05/27/2016): Coronary artery disease involving [place] coronary artery of [place] heart without angina pectoris ICD (implantable cardioverter-defibrillator) [...] (05/27/2016): 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 Resolved Problems Problem Noted Date Diagnosed [...] on file Legal Sex Male 10:20 AM GLOBAL PROGRAM MANAGER Gender Identity Not on file Sexual Orientation Not on file Last Filed Vital Signs Vital Sign Reading Time Taken Comments Blood Pressure 143/90 05/02/2024 10:31 AM CDT Pulse 59 05/02/2024 10:31 AM CDT Temperature 36.7 C (98 F) 07/11/2019 11:01 AM CDT Respiratory Rate 12 04/19/2019 9:14 AM GLOBAL PROGRAM MANAGER Oxygen Saturation 97% 05/02/2024 10:31 AM CDT Inhaled Oxygen Concentration - - Weight 80.7 kg (178 lb) 05/02/2024 10:31 AM CDT Height 167.6 cm (5' 6 ) 05/02/2024 10:31 AM CDT Body Mass Index 28.73 05/02/2024 10:31 AM CDT Plan of Treatment Not on file Medical Devices Implanted Type Area Representative Government Relations Device Identifier Shelf Expiration Date Model / Serial / Lot Icd ICD Left: Chest [employer] LUMAX 540 DRT / [id number] / Icd-12/25/2010 Implanted:12/25 (Quantity not on file) ICD [employer] Procedures Procedure Name Priority Date/Time Associated Diagnosis Comments US ARTERIAL DUPLEX LOWER EXTREMITY BILATERAL Schedule Routine, Read Routine (OP Routine) 05/09/2024 11:31 AM CDT Popliteal artery aneurysm US ANNAMARIE Schedule Routine, Read Routine (OP Routine) 05/09/2024 11:31 AM CDT Popliteal artery aneurysm DEVICE CHECK - REMOTE Routine 05/08/2024 1:28 PM CDT Ischemic cardiomyopathy Ventricular tachycardia (HCC) BASIC METABOLIC PANEL Routine 04/17/2024 11:28 AM GLOBAL PROGRAM MANAGER US TRANSFER OF OUTSIDE FILMS Routine 04/05/2024 9:10 AM GLOBAL PROGRAM MANAGER BASIC METABOLIC PANEL Routine 04/05/2024 Hyperkalemia from Last 3 Months Results * US Arterial Duplex Lower Extremity Bilateral (05/09/2024 11:31 AM CDT) Anatomical Region Laterality Modality Vascular Bilateral Ultrasound 05/09/2024 10:4 7 AM CDT Narrative 05/14/2024 8:27 AM CDT Vascular & Vein Surgery [address] [place] [address] Lower Extremity Arterial Duplex Report Patient Name: BERNARD LUGO T : 1955 (68y 5m) Gender: M Study Date: 05/09/2024 10:47:46 AM Ht(Inch): Wt(Lb): BSA: Dog Pound Attendant: Location: [facility] Order Provider: MARILYN PORTER Quality: Adequate Ref Provider: MARILYN PORTER PROCEDURES: Arterial Report: A non-invasive vascular imaging study of the bilateral lower extremity arteries was performed using B-mode ultrasound, color flow, and spectral Doppler. Limited study due to aneurysm evaluation. INDICATIONS: Prominent Rt popliteal artery with hx of AAA. HISTORY: HTN. HLD. COPD. AAA. CAD-MS S/P stents. ICD. Former smoker. COMPARISONS: No previous exams. MEASUREMENTS: Right Value Left Value Rt SITE MEDICAL DIRECTOR Dst PSV 149.00 cm/sec Lt SITE MEDICAL DIRECTOR Dst PSV 189.00 cm/sec Rt Pop Dst [...] MD - 05/14/2024 Vascular & Vein Surgery [address] [place] [address]. [place] [address] Lower Extremity Arterial Duplex Report Patient Name: BERNARD LUGO T : 1955 (68y 5m) Gender: M Study Date: 05/09/2024 10:47:46 AM Ht(Inch): Wt(Lb): BSA: Dog Pound Attendant: ELOISA Location: [facility] Order Provider: MARILYN PORTER Quality: Adequate Ref Provider: MARILYN PORTER PROCEDURES: Arterial Report: A non-invasive vascular imaging study of the bilaterallower extremity arteries was performed using B-mode ultrasound, color flow, and spectralDoppler. Limited study due to aneurysm evaluation. INDICATIONS: Prominent Rt popliteal artery with hx of AAA. HISTORY: HTN. HLD. COPD. AAA. CAD-MS S/P stents. ICD. Former smoker. COMPARISONS: No previous exams. MEASUREMENTS: Right Value Left Value Rt SITE MEDICAL DIRECTOR Dst PSV 149.00 cm/sec Lt SITE MEDICAL DIRECTOR Dst PSV 189.00 cm/sec Rt Pop Dst [...] MD 05/14/2024 7:33:18 AM CDT us Marilyn oPrter MD IMG US PROCEDURES Final Result * US ANNAMARIE (05/09/2024 11:31 AM CDT) Anatomical Region Laterality Modality Vascular N/A Ultrasound 05/09/2024 10:4 5 AM CDT Narrative 05/14/2024 8:27 AM CDT Vascular & Vein Surgery [address] [facility] [place] [address] Lower Extremity Arterial Doppler Report Patient Name: BERNARD LUGO T : 1955 Study Date: 05/09/2024 10:45:00 AM Gender: M Dog Pound Attendant: Rose Berger RVRicky Location: [facility] Ref Provider: MARILYN PORTER Quality: Adequate Order Provider: MARILYN PORTER PROCEDURES: Arterial Report: Ankle - Brachial Index Doppler exam. INDICATIONS: Prominent Rt pop art on exam; hx of AAA. HISTORY: HTN. HLD. AAA. COPD. CAD-MS S/P stents. ICD. Former smoker. COMPARISONS: No previous exams. MEASUREMENTS: Right Value Left Value Rt Brachial Pressure 133 mmHg Lt Brachial Pressure 138 mmHg Rt WOOD CABINETMAKER Pressure 114 mmHg Lt WOOD CABINETMAKER Pressure 98 mmHg Rt DPA Pressure 110 [...] MD - 05/14/2024 Vascular & Vein Surgery [address] [place] [address] Lower Extremity Arterial Doppler Report Patient Name: BERNARD LUGO T : 1955 Study Date: 05/09/2024 10:45:00 AM Gender: M Dog Pound Attendant: Rose Berger RVT Location: [facility] Ref Provider: MARILYN PORTER Quality: Adequate Order Provider: MARILYN PORTER PROCEDURES: Arterial Report: Ankle - Brachial Index Doppler exam. INDICATIONS: Prominent Rt pop art on exam; hx of AAA. HISTORY: HTN. HLD. AAA. COPD. CAD-MS S/P stents. ICD. Former smoker. COMPARISONS: No previous exams. MEASUREMENTS: Right Value Left Value Rt Brachial Pressure 133 mmHg Lt Brachial Pressure 138 mmHg Rt WOOD CABINETMAKER Pressure 114 mmHg Lt WOOD CABINETMAKER Pressure 98 mmHg Rt DPA Pressure 110 [...] 05/14/2024 7:33:38 AM CDT Marilyn Porter MD [facility] PROCEDURES Final Result * DEVICE CHECK [...] lead measurements noted. Presenting rhythm: -VS/AP-VS. AP-1%, TENTMAKER-0%. No AT/AF episodes noted. 1 Ventricular tachy detection noted on 03/23/2024, iegm 1:1 rhythm, suggestive of SVT, no therapies delivered. Medications; Coreg, ASA. See scanned report. Office device f/u 05/01/2025. [employer] remote f/u 08/07/2024. Eim Toney, SHIMON us Sandeep Melissa MD [facility] C[facility] PROC EDURES Final Result * Basic metabolic panel (04/17/2024 11:28 AM GLOBAL PROGRAM MANAGER) Blood Jose Manuel Balbuena MD LAB BLOOD ORDERABLES Final Resul t * US Outside Reference (04/05/2024 9:10 AM GLOBAL PROGRAM MANAGER) Narrative [id number] - 05/02/2024 11:05 AM CDT This order has been auto-finalized and does not contain a result. us Provider Transcribed Order IMG US PROCEDURES Fin al Result [id number] * Basic metabolic panel (04/05/2024) Blood 04/05/2024 Jose Manuel Balbuena MD LAB BLOOD ORDERABLES Final Resul t EXTERNAL LAB from Last 3 Months Insurance [facility] MEDICARE ADVANTAGE [facility] MEDICARE ADVANTAGE Care Teams Biometric Screener Relationship Specialty Start Date End Date Deborah Dick DO [address] [place] [address] [place] [address] PCP - General Family Medicine 04/28/23
--- OUTSIDE RECORDS SUMMARY | 2024-06-05 10:43 | XMS_ITS | Encounter Summary ---
Author Organization [facility] Healthcare Address [address] [place] [address] Care Team Providers Care Java Technical Architect Name Role Phone Deborah Dick DO Primary Care Provider +1- [phone] Encounter Details Date Type Department Care Team (Late st Contact Info) Description 04/12/2024 Results Follow-Up [facility] Medical Group Cardiology [address] [address] [place] [address] [place] [address] [address] [place], [place] [id number] Social History Tobacco Use Types Packs/Day Years Used Date Smoking Tobacco: Former Cigarettes Q uit: 08/13/2018 Smokeless Tobacco: Never Comments:Smoking History Pac ks/day: 4 Cigarettes Alcohol Use Standard Drinks/Week Comments Yes 0 (1 standard drink = 0.6 oz pur e alcohol) Sex and Gender Information Value Date Recorded Sex Assigned at Not on file 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
--- OUTSIDE RECORDS SUMMARY | 2024-06-05 10:43 | XMS_ITS | Clinical Summary ---
Author Organization [facility] Address [address] 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
--- OUTSIDE RECORDS SUMMARY | 2024-06-05 10:43 | XMS_ITS | Encounter Summary ---
Author Organization [facility] Healthcare Address [address] [place] [address] Care Team Providers Care Manager Roofing Name Role Phone Deborah Dick DO Primary Care Provider +1- [phone] Encounter Details Date Type Department Care Team (Late st Contact Info) Description 04/24/2024 Results Follow-Up [facility] Medical Group Cardiology [address] [address] [place] [address] [place] [address] [address] [place], [place] [id number] Social History Tobacco Use Types Packs/Day Years Used Date Smoking Tobacco: Former Cigarettes Q uit: 08/13/2018 Smokeless Tobacco: Never Comments:Smoking History Pac ks/day: 4 Cigarettes Alcohol Use Standard Drinks/Week Comments Yes 0 (1 standard drink = 0.6 oz pur e alcohol) Sex and Gender Information Value Date Recorded Sex Assigned at Not on file Legal Sex Male 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
--- OUTSIDE RECORDS SUMMARY | 2024-06-05 10:43 | XMS_ITS | Encounter Summary ---
Author Organization [employer] Address 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
--- OUTSIDE RECORDS SUMMARY | 2024-06-05 10:44 | XMS_ITS | Clinical Summary ---
Author Organization [facility] Address [address] [place] [address] Care Team Providers Care Raker Buffing Wheel Name Role Phone Unavailable Primary Care Provider [...] Vaccines (1 of 2) 11/27/2003 Pneumococcal Vaccine: 50+ Ye ars (1 of 1 - PCV) 2018 COVID-19 Vaccine ( - 2023-2 5 season) 2023 RSV Immunization or 60+ Years (1 [...]
[2024-06-05 11:09] LABS: Hematocrit 40.3 % (42.0-52.0); Hemoglobin 12.6 g/dL (14.0-18.0); Mean Corpuscular HGB Conc 31.3 g/dl (32-36); Mean Corpuscular Hemoglobin 29.3 pg (26-34); Mean Corpuscular Volume 93.7 fl (80-100); Mean Platelet Volume 9.8 fl (7.4-10.4); Platelet Count Result 224 k/mm3 (150-375); Red Cell Distribution Width 13.3 % (11.5-14.5)
[2024-06-05 11:27] LABS: Alanine Aminotransferase 25 U/L (6-50); Albumin Level 4.7 g/dL (3.5-5.1); Alkaline Phosphatase 56 U/L (38-126); Anion Gap 9 mmol/L (4-12); Aspartate Amino Transferase 34 U/L (17-59); Bilirubin,Total 0.4 mg/dL (0.2-1.3); Blood Urea Nitrogen 15 mg/dL (9-20); Calcium 9.2 mg/dL (8.4-10.2); Carbon Dioxide 26 mmol/L (22-30); Chloride 101 mmol/L (98-107); Cholesterol 134 mg/dL (0-200); Estimated Glomerular Filt Rate > 60; Glucose 105 mg/dL (65-110); HDL Direct 54 mg/dL; Potassium 5.3 mmol/L (3.4-5.0); Sodium 136 mmol/L (137-145); Triglycerides 129 mg/dL (<150)
[2024-06-05 11:37] LABS: LDL Cholesterol Direct 45 mg/dL
[2024-06-05 11:41] LABS: Hemoglobin A1C 5.9 % (<5.7)
== END 2024-06-05 09:58 | disposition home or self-care (01) ==
LOC: ANHGOSHLAB 09:57
PROVIDERS: PCP Family Medicine; Visit Provider Nurse Practitioner
DX: D64.9 Anemia, unspecified (principal); I77.811 Abdominal aortic ectasia; E78.00 Pure hypercholesterolemia, unspecified; R73.03 Prediabetes
CPT/HCPCS: 36415; 80053; 80061; 83036; 85027

== ENCOUNTER 2024-06-07 14:58 | Outpatient (CLI) | payer MEDICARE, SELFPAY ==
--- OUTSIDE RECORDS SUMMARY | 2024-06-07 15:11 | XMS_ITS | Encounter Summary ---
Author Organization [facility] Healthcare Address [address] [place] [address] Care Team Providers Care Window Maker Name Role Phone Deborah Dick DO Primary Care Provider +1- [phone] Encounter Details Date Type Department Care Team (Late st Contact Info) Description 04/24/2024 Results Follow-Up [facility] Medical Group Cardiology [address] [address] [place] [address] [place] [address] [address] [place], [place] [id number] Social History Tobacco Use Types Packs/Day Years Used Date Smoking Tobacco: Former Cigarettes Q uit: 08/13/2018 Smokeless Tobacco: Never Comments:Smoking History Pac ks/day: 4 Cigarettes Alcohol Use Standard Drinks/Week Comments Yes 0 (1 standard drink = 0.6 oz pur e alcohol) Sex and Gender Information Value Date Recorded Sex Assigned at Not on file 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
--- OUTSIDE RECORDS SUMMARY | 2024-06-07 15:11 | XMS_ITS | Encounter Summary ---
Author Organization [facility] Healthcare Address [address] [place] [address] Care Team Providers Care Medical Records Coder Name Role Phone Deborah Dick DO Primary Care Provider +1- [phone] Encounter Details Date Type Department Care Team (Late st Contact Info) Description 04/12/2024 Results Follow-Up [facility] Medical Group Cardiology [address] [address] [place] [address] [place] [address] [address] [place], [place] [id number] Social History Tobacco Use Types Packs/Day Years Used Date Smoking Tobacco: Former Cigarettes Q uit: 08/13/2018 Smokeless Tobacco: Never Comments:Smoking History Pac ks/day: 4 Cigarettes Alcohol Use Standard Drinks/Week Comments Yes 0 (1 standard drink = 0.6 oz pur e alcohol) Sex and Gender Information Value Date Recorded Sex Assigned at Not on file Legal Sex Male 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
--- OUTSIDE RECORDS SUMMARY | 2024-06-07 15:11 | XMS_ITS | Encounter Summary ---
Author Organization [facility] Address [address] [facility] [address] [place] [address] Care Team Providers Care Service Line Coordinator Name Role Phone Jm Clark MD Primary Care Provider [phone] Jm Clark MD Primary Care Provider [phone] Deborah Dick DO Primary Care Provider +1- [phone] Deborah Dick DO Primary Care Provider + [phone] Encounter Details Date Type Department Care Team (Late st Contact Info) Description 03/16/2016 Orders Only [facility] ProviderKapil MD [address] [place], [place] [id number] Social History Tobacco Use Types Packs/Day Years Used Date Smoking Tobacco: Light Smoker Cigarettes Last attempted t o quit: 02/21/2010 Comments:Smoking History Pac ks/day: 4 Cigarettes Alcohol Use Standard Drinks/Week Comments Yes 0 (1 standard drink = 0.6 oz pur e alcohol) Sex and Gender Information Value Date Recorded Sex Assigned at Not on file 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
--- OUTSIDE RECORDS SUMMARY | 2024-06-07 15:11 | XMS_ITS | Clinical Summary ---
Author Organization [facility] Address [address] [place] [address] Care Team Providers Care Cloud Engagement Partner Name Role Phone Unavailable Primary Care Provider [...] Td Vaccines ( 1 - Tdap) 1972 Pneumococcal Vaccine: 50+ Ye ars (1 of 1 - PCV) 11/27/2003 Zoster Vaccines (1 of 2) 11/27/2003 COVID-19 Vaccine ( - 2023-2 5 season) [...]
--- OUTSIDE RECORDS SUMMARY | 2024-06-07 15:11 | XMS_ITS | Clinical Summary ---
Author Organization [facility] [address] [facility] [address] Address [address] [facility] [address] [place] [address] Care Team Providers Care [employer] Name Role Phone Deborah Dick DO Primary Care Provider [phone]- [phone] Allergies No known active allergies Medications aspirin [...] (05/27/2016): Cardiomyopathy Coronary artery disease invo lving ge[place] coronary artery of [place] heart without angina pectoris 05/20/2015 Overview (05/27/2016): Coronary artery disease involving [place] coronary artery of [place] heart without angina pectoris ICD (implantable cardioverter-defibrillator) [...] (05/27/2016): At 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 Resolved Problems Problem Noted Date Diagnosed Date Resolved Date Tobacco abuse 10/05/2016 11/04/2020 Tobacco dependence syndrome 05/20/2015 11/04/2020 Overview (05/27/2016): Tobacco abuse Dyslipidemia 05/20/2015 08/28/2021 Overview (05/27/2016): Dyslipidemia Encounters Date Type Department Care Team Description 05/16/2024 Telephone [facility] Vascular and Vein Surgery [address] [place] [phone] Norah Ayala 05/14/2024 Telephone [facility] Vascular and Vein Surgery [address] [place] [phone] Janice Contreras MA 05/14/2024 Orders Only [facility] Vascular at [address] [place] [address] Marilyn Porter MD Infrarenal abdominal aortic aneurysm (AAA) without rupture (Primary Dx); Other specified symptoms and signs involving the circulatory and respiratory systems 05/09/2024 11:00 AM CDT Ancillary Procedure [facility] Vascular and Vein Surgery at [address] [place] [address] 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 11:00 AM CDT Ancillary Procedure [facility] Vascular and Vein Surgery at [address] [place] [address] 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 7:30 AM CDT Ancillary Procedure [facility] Cardiology [address] [place] [facility] [address] [place] [address] [place] [address] ICD (implantable cardioverter-defibrill ator) in place [Z95.810] (Primary Dx); Ischemic cardiomyopathy; Ventricular tachycardia (HCC) 05/08/2024 Orders Only [facility] Cardiology [address] [place] [address] [place] [facility] [place] [address] Jose Manuel Balbuena MD ICD (implantable cardioverter-defibrill ator) in place (Primary Dx); H/O ventricular tachycardia; Ischemic cardiomyopathy 05/02/2024 10:45 AM CDT Office Visit [facility] Vascular at [address] [place] [address] Marilyn Porter MD Infrarenal abdominal aortic aneurysm (AAA) without rupture (Primary Dx); Mixed hyperlipidemia; Benign hypertension 05/02/2024 Orders Only [facility] Vascular at [address] [place] [address] Marilyn Porter MD Popliteal artery aneurysm (Primary Dx); Infrarenal abdominal aortic aneurysm (AAA) without rupture 04/24/2024 Results Follow-Up [facility] Cardiology [address] [place] [address] Suite [facility] [address] Jose Manuel Balbuena MD 04/17/2024 Orders Only [facility] Cardiology [facility] [address] [place] [phone] Jose Manuel Balbuena MD 04/12/2024 Results Follow-Up [facility] Cardiology [address] [place] [address] [place], [place] [address] [address] Jose Manuel Balbuena MD 04/06/2024 Telephone [facility] Cardiology [facility] [address] [place] [address] Jose Manuel Balbuena MD 04/06/2024 Orders Only [facility] Cardiology [address] [place] [address] [address] [place] [phone] Jose Manuel Balbuena MD 04/05/2024 9:10 AM CONCRETE BLOCK MOLDER - 04/05/2024 11:59 PM CONCRETE BLOCK MOLDER Hospital Encounter [facility] [employer] [address] [place] [address] Discharge Disposition: Discharge to home or self care from Last 3 Months Surgical History Surgery [...] on file Legal Sex Male 10:20 AM CONCRETE BLOCK MOLDER Gender Identity Not on file Sexual Orientation Not on file Obstetrics History Last Filed Vital Signs Vital Sign Reading Time Taken Comments Blood Pressure 143/90 05/02/2024 10:31 AM CDT Pulse 59 05/02/2024 10:31 AM CDT Temperature 36.7 C (98 F) 07/11/2019 11:01 AM CDT Respiratory Rate 12 04/19/2019 9:14 AM CONCRETE BLOCK MOLDER Oxygen Saturation 97% 05/02/2024 10:31 AM CDT [...] 05/02/2024, 05/02/2024 Medical Devices Implanted Type Area Director Of Intercollegiate Athletics Device Identifier Shelf Expiration Date Model / Serial / Lot Icd ICD Left: Chest [employer] LUMAX 540 DRT / [id number] / Icd-12/25/2010 Implanted:12/25 (Quantity not on file) [...] BASIC METABOLIC PANEL Routine 04/17/2024 11:28 AM CONCRETE BLOCK MOLDER US TRANSFER OF OUTSIDE FILMS Routine 04/05/2024 9:10 AM CONCRETE BLOCK MOLDER BASIC METABOLIC PANEL Routine 04/05/2024 Hyperkalemia from Last 3 Months Results * US Arterial Duplex Lower Extremity Bilateral (05/09/2024 11:31 AM CDT) Anatomical Region Laterality Modality Vascular Bilateral Ultrasound 05/09/2024 10:4 7 AM CDT Narrative 05/14/2024 8:27 AM CDT Vascular & Vein Surgery [address] [place] [address] Lower Extremity Arterial Duplex Report Patient Name: BERNARD LUGO T : 1955 (68y 5m) Gender: M Study Date: 05/09/2024 10:47:46 AM Ht(Inch): Wt(Lb): BSA: Plater Hot Dip: Location: VVSE Order Provider: MARILYN PORTER Quality: Adequate Ref Provider: MARILYN PORTER PROCEDURES: Arterial Report: A non-invasive vascular imaging study of the bilateral lower extremity arteries was performed using B-mode ultrasound, color flow, and spectral Doppler. Limited study due to aneurysm evaluation. INDICATIONS: Prominent Rt popliteal artery with hx of AAA. HISTORY: HTN. HLD. COPD. AAA. CAD-IN S/P stents. ICD. Former smoker. COMPARISONS: No previous exams. MEASUREMENTS: Right Value Left Value Rt MEDICAL SCIENCE LIAISON Dst PSV 149.00 cm/sec Lt MEDICAL SCIENCE LIAISON Dst PSV 189.00 cm/sec Rt Pop Dst [...] MD - 05/14/2024 Vascular & Vein Surgery [address] [facility] [place] [address] Lower Extremity Arterial Duplex Report Patient Name: BERNARD LUGO T : 1955 (68y 5m) Gender: M Study Date: 05/09/2024 10:47:46 AM Ht(Inch): Wt(Lb): BSA: Plater Hot Dip: ELOISA Location: [facility]VSE Order Provider: MARILYN PORTER Quality: Adequate Ref Provider: MARILYN PORTER PROCEDURES: Arterial Report: A non-invasive vascular imaging study of the bilaterallower extremity arteries was performed using B-mode ultrasound, color flow, and spectralDoppler. Limited study due to aneurysm evaluation. INDICATIONS: Prominent Rt popliteal artery with hx of AAA. HISTORY: HTN. HLD. COPD. AAA. CAD-IN S/P stents. ICD. Former smoker. COMPARISONS: No previous exams. MEASUREMENTS: Right Value Left Value Rt MEDICAL SCIENCE LIAISON Dst PSV 149.00 cm/sec Lt MEDICAL SCIENCE LIAISON Dst PSV 189.00 cm/sec Rt Pop Dst [...] AM CDT Vascular & Vein Surgery [address] [place] [address] Lower Extremity Arterial Doppler Report Patient Name: BERNARD LUGO T : 1955 Study Date: 05/09/2024 10:45:00 AM Gender: M Plater Hot Dip: Rose Berger Ricky Location: [facility]VSE Ref Provider: MARILYN PORTER Quality: Adequate Order Provider: MARILYN PORTER PROCEDURES: Arterial Report: Ankle - Brachial Index Doppler exam. INDICATIONS: Prominent Rt pop art on exam; hx of AAA. HISTORY: HTN. HLD. AAA. COPD. CAD-IN S/P stents. ICD. Former smoker. COMPARISONS: No previous exams. MEASUREMENTS: Right Value Left Value Rt Brachial Pressure 133 mmHg Lt Brachial Pressure 138 mmHg Rt AIR SHOVEL OPERATOR Pressure 114 mmHg Lt AIR SHOVEL OPERATOR Pressure 98 mmHg Rt DPA Pressure 110 [...] MD - 05/14/2024 Vascular & Vein Surgery [address] [facility] [place] [address] Lower Extremity Arterial Doppler Report Patient Name: BERNARD LUGO T : 1955 Study Date: 05/09/2024 10:45:00 AM Gender: M Plater Hot Dip: Rose Berger Ricky Location: VV Ref Provider: MARILYN PORTER Quality: Adequate Order Provider: DEWAYNE,MARILYN PROCEDURES: Arterial Report: Ankle - Brachial Index Doppler exam. INDICATIONS: Prominent Rt pop art on exam; hx of AAA. HISTORY: HTN. HLD. AAA. COPD. CAD-IN S/P stents. ICD. Former smoker. COMPARISONS: No previous exams. MEASUREMENTS: Right Value Left Value Rt Brachial Pressure 133 mmHg Lt Brachial Pressure 138 mmHg Rt AIR SHOVEL OPERATOR Pressure 114 mmHg Lt AIR SHOVEL OPERATOR Pressure 98 mmHg Rt DPA Pressure 110 [...] 05/14/2024 7:33:38 AM CDT Marilyn Porter MD [facility] US PROCEDURES Final Result * DEVICE CHECK [...] lead measurements noted. Presenting rhythm: -VS/AP-VS. AP-1%, MACHINIST MATE-0%. No AT/AF episodes noted. 1 Ventricular tachy detection noted on 03/23/2024, iegm 1:1 rhythm, suggestive of SVT, no therapies delivered. Medications; Coreg, ASA. See scanned report. Office device f/u 05/01/2025. [employer] remote f/u 08/07/2024. Emi Toney, RN Sandeep Melissa MD CV CARDIAC SERVICES PROC EDURES Final Result * Basic metabolic panel (04/17/2024 11:28 AM CONCRETE BLOCK MOLDER) Blood Jose Manuel Balbuena MD LAB BLOOD ORDERABLES Final Resul t * US Outside Reference (04/05/2024 9:10 AM CONCRETE BLOCK MOLDER) Narrative [email or web address] - 05/02/2024 11:05 AM CDT This order has been auto-finalized and does not contain a result. Provider Transcribed Order IM US PROCEDURES Fin al Result [email or web address] * Basic metabolic panel (04/05/2024) Blood 04/05/2024 us Jose Manuel Balbuena MD LAB BLOOD ORDERABLES Final Resul t EXTERNAL LAB from Last 3 Months Insurance [facility] MEDICARE ADVANTAGE [facility] MEDIC[facility] ADVANTAGE Care Teams [employer] Relationship Specialty Start Date End Date Deborah Dick DO [address] [place] [address] [place] [address] PCP - General Family Medicine 04/28/23
--- OUTSIDE RECORDS SUMMARY | 2024-06-07 15:11 | XMS_ITS | Clinical Summary ---
Author Organization [employer] [facility] Address [address] Lim: Epic Prelude ADT IJ[place]OMA [place] [address] Care Team Providers Care Rn Clinical Documentation Name Role Phone Unavailable Primary Care Provider Unavailabl e Social History Tobacco Use Types Packs/Day Years Used Date Smoking Tobacco: Never Assessed Sex and Gender Information Value Date Recorded Sex Assigned at Not on file Legal Sex Male 4:41 AM [employer]ARMWORKERS Gender Identity Not on file Sexual Orientation [...]
--- OUTSIDE RECORDS SUMMARY | 2024-06-07 15:11 | XMS_ITS | Encounter Summary ---
Author Organization [employer] Address [address] [place] [address] Care Team Providers Care Survey Manager Name Role Phone Unavailable Primary Care Provider Unavailabl e Encounter Details Date Type Department Care Team (Latest Contact Info) Description 01/18/2001 Outpatient Historical [facility] Umang Le MD [address] [place] [address] LUMBOSACRAL SPONDYLOSIS (Primary Dx) Social History Tobacco Use Types Packs/Day Years Used Date Smoking Tobacco: Never Assessed Sex and Gender Information Value Date Recorded Sex Assigned at Not on file Legal Sex Male 4:41 AM LOCKS TENDER Gender Identity Not on file Sexual Orientation Not on file documented as of this encounter Plan of Treatment Not on file documented as of this encounter Visit Diagnoses Diagnosis Lumbosacral spondylosis without myelopathy- Primary documented in this encounter
--- OUTSIDE RECORDS SUMMARY | 2024-06-07 15:11 | XMS_ITS | Referral Summary ---
Author Organization [facility] [address] [place] [address] Care Team Providers Care Electric Range Preparer Name Role Phone Deborah Dick DO Primary Care Provider +1- [phone] Encounters Date Type Department Care Team Description 05/16/2024 Telephone [facility] Medical [facility] Vascular and Vein Surgery [address] [facility] [address] [place] [address] Norah Ayala 05/14/2024 Telephone [facility] Vascular and Vein Surgery [address] [facility] [address] [place] [address] Janice Contreras MA 05/14/2024 Orders Only [facility] Vascular at [address] [place] [address] Marilyn Porter MD Infrarenal abdominal aortic aneurysm (AAA) without rupture (Primary Dx); Other specified symptoms and signs involving the circulatory and respiratory systems 05/09/2024 11:00 AM CDT Ancillary Procedure [facility] Vascular and Vein Surgery at [address] [place] [address] 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 11:00 AM CDT Ancillary Procedure [facility] Vascular and Vein Surgery at [address] [place] [address] 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 Orders Only [facility] Cardiology [address] [place] [address] Suite [facility] [place] [phone] Jose Manuel Balbuena MD ICD (implantable cardioverter-defibrill ator) in place (Primary Dx); H/O ventricular tachycardia; Ischemic cardiomyopathy 05/08/2024 7:30 AM CDT Ancillary Procedure [facility] Cardiology [address] [place] [address] [place], [place] [address] [address] ICD (implantable cardioverter-defibrill ator) in place [Z95.810] (Primary Dx); Ischemic cardiomyopathy; Ventricular tachycardia (HCC) 05/02/2024 Orders Only [facility] Vascular at [address] [place] [address] Marilyn Porter MD Popliteal artery aneurysm (Primary Dx); Infrarenal abdominal aortic aneurysm (AAA) without rupture 05/02/2024 10:45 AM CDT Office Visit [facility] Vascular at [address] [place] [address] Marilyn Porter MD Infrarenal abdominal aortic aneurysm (AAA) without rupture (Primary Dx); Mixed hyperlipidemia; Benign hypertension 04/24/2024 Results Follow-Up [facility] Cardiology [address] [place] [address] [place] [address] [place] [address] Jose Manuel Balbuena MD 04/17/2024 Orders Only [facility] Cardiology [address] [place] [address] [place] [phone] Jose Manuel Balbuena MD 04/12/2024 Results Follow-Up [facility] Cardiology [address] [place] [address] [place], [place] [address] [place] [address] Jose Manuel Balbuena MD 04/06/2024 Telephone [facility] Cardiology [address] [place] [address] [address] [place] [address] Jose Manuel Balbuena MD 04/06/2024 Orders Only [facility] Cardiology [address] [place] [address] [address] [place] [address] Jose Manuel Balbuena MD 04/05/2024 9:[address] ENGINEER FREIGHT - 04/05/2024 11:[address] ENGINEER FREIGHT Hospital Encounter [facility] [employer] [address] [place] [address] Discharge Disposition: Discharge to home or self care from Last 3 Months Allergies No known [...] (05/27/2016): Cardiomyopathy Coronary artery disease invo lving [place] coronary artery of [place] heart without angina pectoris 05/20/2015 Overview (05/27/2016): Coronary artery disease involving [place] coronary artery of [place] heart without angina pectoris ICD (implantable cardioverter-defibrillator) [...] (05/27/2016): At risk for amiodarone toxicity with fpc use Resolved Problems Problem Noted Date Diagnosed [...] on file Legal Sex Male 10:[address] ENGINEER FREIGHT Gender Identity Not on file Sexual Orientation Not on file Last Filed Vital Signs Vital Sign Reading Time Taken Comments Blood Pressure 143/90 05/02/2024 10:31 AM CDT Pulse 59 05/02/2024 10:31 AM CDT Temperature 36.7 C (98 F) 07/11/2019 11:01 AM CDT Respiratory Rate 12 04/19/2019 9:[address] ENG[address]ER FREIGHT Oxygen Saturation 97% 05/02/2024 10:31 AM CDT Inhaled Oxygen Concentration - - Weight 80.7 kg (178 lb) 05/02/2024 10:31 AM CDT Height 167.6 cm (5' 6 ) 05/02/2024 10:31 AM CDT Body Mass Index 28.73 05/02/2024 10:31 AM CDT Plan of Treatment Not on file Medical Devices Implanted Type Area Route Sales Delivery Driver Device Identifier Shelf Expiration Date Model / Serial / Lot Icd ICD Left: Chest [employer] LUMAX 540 DRT / [id number] / Icd-12/25/2010 Implanted:12/25 (Quantity not on file) [...] BASIC METABOLIC PANEL Routine 04/17/2024 11:[address] ENGINEER FREIGHT US TRANSFER OF OUTSIDE FILMS Routine 04/05/2024 9:[address] ENGINEER FREIGHT BASIC METABOLIC PANEL Routine 04/05/2024 Hyperkalemia from Last 3 Months Results * US Arterial Duplex Lower Extremity Bilateral (05/09/2024 11:31 AM CDT) Anatomical Region Laterality Modality Vascular Bilateral Ultrasound 05/09/2024 10:4 7 AM CDT Narrative 05/14/2024 8:27 AM CDT Vascular & Vein Surgery [address] [place] [address] Lower Extremity Arterial Duplex Report Patient Name: BERNARD LUGO T : 1955 (68y 5m) Gender: M Study Date: 05/09/2024 10:47:46 AM Ht(Inch): Wt(Lb): BSA: Lay Out Helper: Location: [facility]VSE Order Provider: MARILYN PORTER Quality: Adequate Ref Provider: MARILYN PORTER PROCEDURES: Arterial Report: A non-invasive vascular imaging study of the bilateral lower extremity arteries was performed using B-mode ultrasound, color flow, and spectral Doppler. Limited study due to aneurysm evaluation. INDICATIONS: Prominent Rt popliteal artery with hx of AAA. HISTORY: HTN. HLD. COPD. AAA. CAD-CO S/P stents. ICD. Former smoker. COMPARISONS: No previous exams. MEASUREMENTS: Right Value Left Value Rt DIRECTOR OF FOOD AND NUTRITION SERVICES Dst PSV 149.00 cm/sec Lt DIRECTOR OF FOOD AND NUTRITION SERVICES Dst PSV 189.00 cm/sec Rt Pop Dst [...] - 05/14/2024 Vascular & Vein Surgery [address] [place] [address] Lower Extremity Arterial Duplex Report Patient Name: BERNARD LUGO T : 1955 (68y 5m) Gender: M Study Date: 05/09/2024 10:47:46 AM Ht(Inch): Wt(Lb): BSA: Lay Out Helper: Location: [facility] Order Provider: MARILYN PORTER Quality: Adequate Ref Provider: MARILYN PORTER PROCEDURES: Arterial Report: A non-invasive vascular imaging study of the bilaterallower extremity arteries was performed using B-mode ultrasound, color flow, and spectralDoppler. Limited study due to aneurysm evaluation. INDICATIONS: Prominent Rt popliteal artery with hx of AAA. HISTORY: HTN. HLD. COPD. AAA. CAD-CO S/P stents. ICD. Former smoker. COMPARISONS: No previous exams. MEASUREMENTS: Right Value Left Value Rt DIRECTOR OF FOOD AND NUTRITION SERVICES Dst PSV 149.00 cm/sec Lt DIRECTOR OF FOOD AND NUTRITION SERVICES Dst PSV 189.00 cm/sec Rt Pop Dst [...] AM CDT Vascular & Vein Surgery [address] [facility] [place] [address] Lower Extremity Arterial Doppler Report Patient Name: BERNARD LUGO T : 1955 Study Date: 05/09/2024 10:45:00 AM Gender: M Lay Out Helper: Rose Berger RVT Location: [facility]VSE Ref Provider: MARILYN PORTER Quality: Adequate Order Provider: MARILYN PORTER PROCEDURES: Arterial Report: Ankle - Brachial Index Doppler exam. INDICATIONS: Prominent Rt pop art on exam; hx of AAA. HISTORY: HTN. HLD. AAA. COPD. CAD-CO S/P stents. ICD. Former smoker. COMPARISONS: No previous exams. MEASUREMENTS: Right Value Left Value Rt Brachial Pressure 133 mmHg Lt Brachial Pressure 138 mmHg Rt UNITIZER Pressure 114 mmHg Lt UNITIZER Pressure 98 mmHg Rt DPA Pressure 110 [...] MD - 05/14/2024 Vascular & Vein Surgery [address] [place] [address] Lower Extremity Arterial Doppler Report Patient Name: BERNARD LUGO T : 1955 Study Date: 05/09/2024 10:45:00 AM Gender: M Lay Out Helper: Rose Berger RVRicky Location: VVSE Ref Provider: MARILYN PORTER Quality: Adequate Order Provider: MARILYN PORTER PROCEDURES: Arterial Report: Ankle - Brachial Index Doppler exam. INDICATIONS: Prominent Rt pop art on exam; hx of AAA. HISTORY: HTN. HLD. AAA. COPD. CAD-CO S/P stents. ICD. Former smoker. COMPARISONS: No previous exams. MEASUREMENTS: Right Value Left Value Rt Brachial Pressure 133 mmHg Lt Brachial Pressure 138 mmHg Rt UNITIZER Pressure 114 mmHg Lt UNITIZER Pressure 98 mmHg Rt DPA Pressure 110 [...] Marilyn Porter MD 05/14/2024 7:33:38 AM CDT us Marilyn Porter MD IM US PROCEDURES Final [...] lead measurements noted. Presenting rhythm: -VS/AP-VS. AP-1%, FRANCHISE MANAGER-0%. No AT/AF episodes noted. 1 Ventricular tachy detection noted on 03/23/2024, iegm 1:1 rhythm, suggestive of SVT, no therapies delivered. Medications; Coreg, ASA. See scanned report. Office device f/u 05/01/2025. [employer] remote f/u 08/07/2024. Emi Toney, SHIMON Sandeep Melissa MD CV CARDIAC SERVICES PROC EDURES Final Result * Basic metabolic panel (04/17/2024 11:[address] ENGINEER FREIGHT) Blood Jose Manuel Balbuena MD LAB BLOOD ORDERABLES Final Resul t * US Outside Reference (04/05/2024 9:[address] ENGINEER FREIGHT) Narrative [email or web address] - 05/02/2024 11:05 AM CDT This order has been auto-finalized and does not contain a result. Provider Transcribed Order IMG US PROCEDURES Fin al Result Performing Organization Address City/[facility]/ZIP Co de Phone Number [email or web address] * Basic metabolic panel (04/05/2024) Blood 04/05/2024 Result [facility] Jose Manuel Balbuena MD LAB BLOOD ORDERABLES Final Resul t EXTERNAL LAB from Last 3 Months Insurance [facility] MEDIC[facility] ADVANTAGE [facility] MEDIC[facility] ADVANTAGE Care Teams Electric Range Preparer Relationship Specialty Start Date End Date Deborah Dick DO [facility] [place] [address] PCP - General Family Medicine 04/28/23
[2024-06-07 19:22] LABS: Hematocrit 37.6 % (42.0-52.0); Mean Corpuscular HGB Conc 31.9 g/dl (32-36); Mean Corpuscular Hemoglobin 29.3 pg (26-34); Mean Corpuscular Volume 91.7 fl (80-100); Mean Platelet Volume 9.8 fl (7.4-10.4); Platelet Count Result 221 k/mm3 (150-375); White Blood Count 6.2 K/mm3 (4.5-10.0)
[2024-06-07 19:47] LABS: Alanine Aminotransferase 25 U/L (6-50); Albumin Level 4.6 g/dL (3.5-5.1); Alkaline Phosphatase 59 U/L (38-126); Anion Gap 8 mmol/L (4-12); Aspartate Amino Transferase 32 U/L (17-59); Bilirubin,Total 0.3 mg/dL (0.2-1.3); Blood Urea Nitrogen 16 mg/dL (9-20); Calcium 9.2 mg/dL (8.4-10.2); Carbon Dioxide 27 mmol/L (22-30); Chloride 100 mmol/L (98-107); Estimated Glomerular Filt Rate > 60; Glucose 90 mg/dL (65-110); Potassium 4.7 mmol/L (3.4-5.0); Sodium 135 mmol/L (137-145)
== END 2024-06-07 14:59 | disposition home or self-care (01) ==
LOC: ANHGOSHLAB 14:59
PROVIDERS: PCP Family Medicine; Visit Provider Nurse Practitioner
DX: E87.5 Hyperkalemia (principal); D64.9 Anemia, unspecified
CPT/HCPCS: 36415; 80053; 85027

== ENCOUNTER 2024-06-12 10:54 | Outpatient (CLI) | payer MEDICARE, SELFPAY ==
--- NOTE | ~2024-06-12 | XR_ITS ---
Left Shoulder Technique: AP and scapular Y views were obtained. Clinical History: Pain Findings: No fracture or dislocation is seen. Osseous alignment is anatomic. The glenohumeral joint d emonstrates moderate to advanced degenerative change, especially the inferior aspect. There is minima l glenohumeral joint degenerative change. Soft tissues are unremarkable. Impression: Degenerative change, as above, especially the glenohumeral joint. Reviewed, dictated and finalized at location M. Impression: Degenerative change, as above, especially the glenohumeral joint.
--- NOTE | ~2024-06-12 | XR_ITS ---
Right Shoulder Technique: AP and axillary views were obtained. Clinical History: Pain Findings: No fracture or dislocation is seen. Osseous alignment is anatomic. The glenohumeral joint d emonstrate moderate to severe degenerative change, with prominent inferomedial humeral head osteophyt e. And AC joint demonstrates mild degenerative change. Soft tissues are unremarkable. Calcified pulmo nary granulomas are noted. Impression: Degenerative changes, as above, severe glenohumeral joint. Reviewed, dictated and finalized at location M. Impression: Degenerative changes, as above, severe glenohumeral joint.
== END 2024-06-12 10:55 | disposition home or self-care (01) ==
PROVIDERS: PCP Orthopaedic Surgery; Visit Provider Nurse Practitioner
DX: M19.011 Primary osteoarthritis, right shoulder (principal); M19.012 Primary osteoarthritis, left shoulder
CPT/HCPCS: 73030

== ENCOUNTER 2024-09-19 10:55 | Outpatient (CLI) | payer MEDICARE, SELFPAY ==
--- NOTE | ~2024-09-19 | CT_ITS ---
CT Scan of the Chest without Contrast: Clinical Indication: Lung cancer screening, nicotine dependence Technique: Contiguous sections were acquired throughout the chest without intravenous contrast. Dose reduction technique was used on this scan by utilizing automated exposure control and iterative recon struction technique. The dose-length product (DLP) was 157.84 mGy-cm. COMPARISON: 09/19/2023 Findings: There is no evidence of any significant mediastinal, hilar or axillary lymphadenopathy. Calcified med iastinal and right hilar lymph nodes are present. Extensive coronary artery calcifications are presen t. There is no evidence of pleural or pericardial effusion. Scattered calcified granulomas are present. No noncalcified pulmonary nodule seen. Images through the upper abdomen reveal no abnormalities. Impression: Lung RADS 2: Benign appearance. 12 month follow-up screening CT advised. Reviewed, dictated and finalized at [facility]. Impression: Lung RADS 2: Benign appearance. 12 month follow-up screening CT advised.
--- OUTSIDE RECORDS SUMMARY | 2024-09-19 11:27 | XMS_ITS | Clinical Summary ---
Author Organization [facility] Address [address] [place] [address] Care Team Providers Care Feed Miller Name Role Phone Unavailable Primary Care Provider [...]
--- OUTSIDE RECORDS SUMMARY | 2024-09-19 11:27 | XMS_ITS | Encounter Summary ---
Author Organization [facility] Address [address] [facility] [address] [place] [address] Care Team Providers Care Stained Glass Window Designer Name Role Phone Jm Clark MD Primary Care Provider [phone] Jm Clark MD Primary Care Provider [phone] Deborah Dick DO Primary Care Provider +1- [phone] Deborah Dick DO Primary Care Provider + [phone] Encounter Details Date Type Department Care Team (Late st Contact Info) Description 03/16/2016 Orders Only [facility] ProviderKapil MD [address] [place] [address] Social History Tobacco Use Types Packs/Day Years Used Date Smoking Tobacco: Light Smoker Cigarettes Last attempted t o quit: 02/21/2010 Comments:Smoking History Pac ks/day: 4 Cigarettes Alcohol Use Standard Drinks/Week Comments Yes 0 (1 standard drink = 0.6 oz pur e alcohol) Sex and Gender Information Value Date Recorded Sex Assigned at Not on file Legal Sex Male 10:20 AM MEDIATION COMMISSIONER Gender Identity Not on file Sexual Orientation [...] on filedocumented in this encounter Care Teams Stained Glass Window Designer Relationship Specialty Start Date End Date Jm Clark MD [address] [place] [address] PCP - General 05/21/16 04/18/19 Jm Clark MD [address] [place] [address] PCP - General 12/24/11 05/20/16 Deborah Dick DO [address] [place] [address] PCP - General Family Medicine 04/19/19 04/27/23 Deborah Dick DO [address] [place] [address] [place] [address] PCP - General Family Medicine 04/28/23 documented as of this encounter
--- OUTSIDE RECORDS SUMMARY | 2024-09-19 11:27 | XMS_ITS | Referral Summary ---
Author Organization [facility] [address] [facility] 162 Address [address] [facility] [address] [place] [address] Care Team Providers Care Order Fulfillment Specialist Name Role Phone Deborah Dick DO Primary Care Provider [phone]- [phone] Encounters Date Type Department Care Team Description 08/07/2024 10:00 AM CDT Ancillary Procedure [facility] Cardiology [address] [place] [id number] ICD (implantable cardioverter-defibrilla tor) in place; H/O ventricular tachycardia; Ischemic cardiomyopathy from Last 3 Months Allergies No known active allergies Medications aspirin 81 mg enteric coated tablet Take 1 tablet (81 mg total) by mouth daily 90 tablet 3 0 Active empagliflozin (JARDIANCE) 10 mg tablet Take 1 tablet (10 mg total) by mouth daily 30 tablet 11 4 Active Additional Information Patient not taking.Reported on 05/02/2024 losartan (COZAAR) 25 mg tablet Take 1 tablet (25 mg total) by mouth daily 30 tablet 5 03/07/19 26 Active spironolactone (ALDACTONE) 25 mg tablet Take 1 tablet (25 mg total) by mouth daily 30 tablet 5 03/07/19 26 Active ezetimibe (ZETIA) 10 mg tablet TAKE 1 TABLET BY MOUTH DAILY 100 tablet 2 5 Active rosuvastatin (CRESTOR) 40 mg tablet TAKE 1 TABLET BY MOUTH DAILY 100 tablet 2 5 Active carvediloL (COREG) 12.5 mg tablet TAKE 1 TABLET BY MOUTH TWICE DAILY WITH MEALS 200 tablet 2 5 Active Active Problems Problem Noted Date Diagnosed [...] (05/27/2016): Cardiomyopathy 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 artery of 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 angina pectoris 05/20/2015 Overview (05/27/2016): Coronary artery disease involving tejon coronary artery of 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 angina pectoris ICD (implantable cardioverter-defibrillator) [...] (05/27/2016): At risk for amiodarone toxicity with intermediate use Resolved Problems Problem Noted Date Diagnosed [...] on file Legal 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 Gender Identity Not on file Sexual Orientation Not on file Last Filed Vital Signs Vital Sign Reading Time Taken Comments Blood Pressure 143/90 05/02/2024 10:31 AM CDT Pulse 59 05/02/2024 10:31 AM CDT Temperature 36.7 C (98 F) 07/11/2019 11:01 AM CDT Respiratory Rate 12 04/19/2019 9:14 AM BRIDGE OPENER Oxygen Saturation 97% 05/02/2024 10:31 AM CDT Inhaled Oxygen Concentration - - Weight 80.7 kg (178 lb) 05/02/2024 10:31 AM CDT Height 167.6 cm (5' 6) 05/02/2024 10:31 AM CDT Body Mass Index 28.73 05/02/2024 10:31 AM CDT Plan of Treatment Not on file Medical Devices Implanted Type Area Generator Worker Device Identifier Shelf Expiration Date Model / Serial / Lot Icd ICD Left: Chest [employer] LUMAX 540 DRT / [id number] / Icd-12/25/2010 Implanted:12/25 (Quantity not on file) ICD Chest [employer] Insurance [facility] MEDICARE ADVANTAGE [facility] MEDIC[facility] ADVANTAGE Care Teams Order Fulfillment Specialist Relationship Specialty Start Date End Date Deborah Dick DO [address] [place] [address] DR [address] [place] [address] PCP - General Family Medicine 04/28/23
--- OUTSIDE RECORDS SUMMARY | 2024-09-19 11:27 | XMS_ITS | Clinical Summary ---
Author Organization [facility] Address [address] 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
--- OUTSIDE RECORDS SUMMARY | 2024-09-19 11:27 | XMS_ITS | Encounter Summary ---
Author Organization [employer] Address 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
--- OUTSIDE RECORDS SUMMARY | 2024-09-19 11:27 | XMS_ITS | Clinical Summary ---
Author Organization [facility] [address] [facility] 162 Address [address] [facility] 162 [place] [address] Care Team Providers Care Pipe Setter Name Role Phone Deborah Dcik DO Primary Care Provider +1- [phone] Allergies No known active allergies Medications aspirin [...] (05/27/2016): Cardiomyopathy Coronary artery disease invo lving [place] coronary artery of [place] heart without angina pectoris 05/20/2015 Overview (05/27/2016): Coronary artery disease involving [place] coronary artery of quileute heart without angina pectoris ICD (implantable cardioverter-defibrillator) [...] (05/27/2016): At risk for amiodarone toxicity with residential use Resolved Problems Problem Noted Date Diagnosed Date Resolved Date Tobacco abuse 10/05/2016 11/04/2020 Tobacco dependence syndrome 05/20/2015 11/04/2020 Overview (05/27/2016): Tobacco abuse Dyslipidemia 05/20/2015 08/28/2021 Overview (05/27/2016): Dyslipidemia Encounters Date Type Department Care Team Description 08/07/2024 10:00 AM CDT Ancillary Procedure [facility] Cardiology [address] [place] [id number] ICD (implantable cardioverter-defibrilla tor) in place; H/O ventricular tachycardia; Ischemic cardiomyopathy from Last 3 Months Surgical History Surgery [...] on file 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 Gender Identity Not on file Sexual Orientation Not on file Obstetrics History Last Filed Vital Signs Vital Sign Reading Time Taken Comments Blood Pressure 143/90 05/02/2024 10:31 AM CDT Pulse 59 05/02/2024 10:31 AM CDT Temperature 36.7 C (98 F) 07/11/2019 11:01 AM CDT Respiratory Rate 12 04/19/2019 9:14 AM CLAIMS ASSOCIATE Oxygen Saturation 97% 05/02/2024 10:31 AM CDT [...] 11/27/2003 Well Visit 65+ 2018 Influenza Vaccine (#1) 2024 11/21/2017 Abdominal Aortic Aneurysm (A AA) Screen Completed 05/14/2024, 05/02/2024, 05/02/2024 Medical Devices Implanted Type Area Milling General Superintendent Device Identifier Shelf Expiration Date Model / Serial / Lot Icd ICD Left: Chest [employer] LUMAX 540 DRT / [id number] / Icd-12/25/2010 Implanted:12/25 (Quantity not on file) ICD Chest [employer] Insurance [facility] MEDICARE ADVANTAGE [facility] Address: [facility] [address] [place] [address] [facility] MEDICARE ADVANTAGE [facility] Address: [address] [address] Care Teams Pipe Setter Relationship Specialty Start Date End Date Deborah Dick DO [address] [facility] [address] [place] [address] PCP - General Family Medicine 04/28/23
== END 2024-09-19 10:56 | disposition home or self-care (01) ==
PROVIDERS: PCP Family Medicine; Visit Provider Nurse Practitioner
DX: Z12.2 Encounter for screening for malignant neoplasm of respiratory organs (principal); Z87.891 Personal history of nicotine dependence
CPT/HCPCS: 71271

== ENCOUNTER 2024-09-24 10:28 | Outpatient (CLI) | payer MEDICARE, SELFPAY ==
--- OUTSIDE RECORDS SUMMARY | 2024-09-24 10:53 | XMS_ITS | Clinical Summary ---
Author Organization [facility] Address [address] [place] [address] Care Team Providers Care Clothing And Textiles Teacher Name Role Phone Unavailable Primary Care Provider [...]
--- OUTSIDE RECORDS SUMMARY | 2024-09-24 10:53 | XMS_ITS | Clinical Summary ---
Author Organization [facility] [address] [facility] 162 Address [address] [place] [address] Care Team Providers Care Tractor Mechanic Name Role Phone Deborah Dick DO Primary Care Provider +1- [phone] Allergies No known active allergies Medications aspirin [...] (05/27/2016): Cardiomyopathy Coronary artery disease invo lving [place] coronary artery of [place] heart without angina pectoris 05/20/2015 Overview (05/27/2016): Coronary artery disease involving [place] coronary artery of [place] heart without angina pectoris ICD (implantable cardioverter-defibrillator) [...] Description 08/07/2024 10:00 AM CDT Ancillary Procedure 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 LUMAX 540 DRT / [id number] / Icd-12/25/2010 Implanted:12/25 (Quantity not on file) ICD Chest [employer] Procedures Procedure Name Priority Date/Time Associated Diagnosis Comments DEVICE CHECK - REMOTE Routine 08/16/2024 1:28 PM CDT ICD (implantable cardioverter-defibrill ator) in place H/O ventricular tachycardia Ischemic cardiomyopathy from Last 3 Months Results * DEVICE CHECK - REMOTE (08/16/2024 1:28 PM CDT) Anatomical Region Laterality Modality Other Narrative 09/21/2024 12:40 PM CDT Bi[employer] Dual ICD. Dx; ICM, VT. Gen change 07/24/2019-Uppstrom, chronic leads 12/25/2010. Biotronik Remote Home Monitoring Q3 mo, office device checks Q1 yr. Device is on ADVISORY for Premature Battery Depletion. Routine DDD ICD Remote. Transmission attached. Battery status 3.10 V, 67% remaining battery life to ADRIANNA. Stable Charge time and Shock impedance. Stable lead impedances, pacing, and sensing threshold. Presenting rhythm: /VS regular AP-1 %, PICKUP DRIVER-0 % (0) AT/AF episodes noted. (4) Ventricular tachy arrhythmias detected. IEGM demonstrates PSVT with the longest episode lasting 3 seconds. Medication: ASA 81 mg, carvedilol 12.5 mg, losartan 25 mg Follow up: Office Pacemaker/ICD scheduled 05/01/25 Biotronik remote 11/13/24 Adin Capellan RN Jose Manuel Balbuena MD CV CARDIAC SERVICES PROCEDURES F inal Result from Last 3 Months Insurance UHC MEDICARE ADVANTAGE UHC MEDICARE ADVANTAGE Care Teams Tractor Mechanic Relationship Specialty Start Date End Date Deborah Dick DO [address] [place] [address] [address] [place] [address] PCP - General Family Medicine 04/28/23
--- OUTSIDE RECORDS SUMMARY | 2024-09-24 10:53 | XMS_ITS | Clinical Summary ---
Author Organization [facility] Address [address] 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
--- OUTSIDE RECORDS SUMMARY | 2024-09-24 10:53 | XMS_ITS | Encounter Summary ---
Author Organization [facility] Address 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
--- OUTSIDE RECORDS SUMMARY | 2024-09-24 10:53 | XMS_ITS | Referral Summary ---
Author Organization [facility] [address] [facility] 162 Address [address] [facility] 162 [place] [address] Care Team Providers Care Building Tech Name Role Phone Deborah Dick DO Primary Care Provider [phone]- [phone] Encounters Date Type Department Care Team Description 08/07/2024 10:00 AM CDT Ancillary Procedure [facility] Cardiology [address] [place] [phone] ICD (implantable cardioverter-defibrilla tor) in place; [...] (05/27/2016): Cardiomyopathy Coronary artery disease invo lving [place] coronary artery of [place] heart without angina pectoris 05/20/2015 Overview (05/27/2016): Coronary artery disease involving [place] coronary artery of [place] heart without angina pectoris ICD (implantable cardioverter-defibrillator) [...] (05/27/2016): At risk for amiodarone toxicity with care home use Resolved Problems Problem Noted Date Diagnosed [...] on file Legal Sex Male 10:20 AM BUDGET AND POLICY ANALYST Gender Identity Not on file Sexual Orientation Not on file Last Filed Vital Signs Vital Sign Reading Time Taken Comments Blood Pressure 143/90 05/02/2024 10:31 AM CDT Pulse 59 05/02/2024 10:31 AM CDT Temperature 36.7 C (98 F) 07/11/2019 11:01 AM CDT Respiratory Rate 12 04/19/2019 9:14 AM BUDGET AND POLICY ANALYST Oxygen Saturation 97% 05/02/2024 10:31 AM CDT Inhaled Oxygen Concentration - - Weight 80.7 kg (178 lb) 05/02/2024 10:31 AM CDT Height 167.6 cm (5' 6) 05/02/2024 10:31 AM CDT Body Mass Index 28.73 05/02/2024 10:31 AM CDT Plan of Treatment Not on file Medical Devices Implanted Type Area Presser Cotton Ginning Device Identifier Shelf Expiration Date Model / Serial / Lot Icd ICD Left: Chest [employer] LUMAX 540 DRT / [id number] / Icd-12/25/2010 Implanted:12/25 (Quantity not on file) ICD Chest [employer] Procedures Procedure Name Priority Date/Time Associated Diagnosis Comments DEVICE CHECK - REMOTE Routine 08/16/2024 1:28 PM CDT ICD (implantable cardioverter-defibrill ator) in place H/O ventricular tachycardia Ischemic cardiomyopathy from Last 3 Months Results * DEVICE CHECK - REMOTE (08/16/2024 1:28 PM CDT) Anatomical Region Laterality Modality Other Narrative 09/21/2024 12:40 PM CDT Nonaboxronik Dual ICD. Dx; ICM, VT. Gen change [...] threshold. Presenting rhythm: /VS regular AP-1 %, LABOR RELATIONS REPRESENTATIVE-0 % (0) AT/AF episodes noted. (4) Ventricular tachy arrhythmias detected. IEGM demonstrates PSVT with the longest episode lasting 3 seconds. Medication: ASA 81 mg, carvedilol 12.5 mg, losartan 25 mg Follow up: Office Pacemaker/ICD scheduled 05/01/25 Biotronik remote 11/13/24 Adin Capellan, RN Jose Manuel Balbuena MD CV CARDIAC SERVICES PROCEDURES F inal Result from Last 3 Months Insurance [facility] MEDICARE ADVANTAGE UHC MEDICARE ADVANTAGE Care Teams Building Tech Relationship Specialty Start Date End Date Deborah Dick DO [address] [facility] [address] [place] [address] PCP - General Family Medicine 04/28/23
--- OUTSIDE RECORDS SUMMARY | 2024-09-24 10:53 | XMS_ITS | Encounter Summary ---
Author Organization [facility] Address [address] [facility] [address] [place] [address] Care Team Providers Care Naval Special Warfare Medic Name Role Phone Jm Clark MD Primary Care Provider [phone] Jm Clark MD Primary Care Provider [phone] Deborah Dick DO Primary Care Provider +1- [phone] Deborah Dick DO Primary Care Provider + [phone] Encounter Details Date Type Department Care Team (Late st Contact Info) Description 03/16/2016 Orders Only [facility] ProviderKapil MD [address] [place] [address] Social History Tobacco Use Types Packs/Day Years Used Date Smoking Tobacco: Light Smoker Cigarettes Last attempted t o quit: 02/21/2010 Comments:Smoking History Pac ks/day: 4 Cigarettes Alcohol Use Standard Drinks/Week Comments Yes 0 (1 standard drink = 0.6 oz pur e alcohol) Sex and Gender Information Value Date Recorded Sex Assigned at Not on file 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
[2024-09-24 15:11] LABS: Hematocrit 36.9 % (42.0-52.0); Hemoglobin 11.6 g/dL (14.0-18.0); Mean Corpuscular HGB Conc 31.4 g/dl (32-36); Mean Corpuscular Hemoglobin 30.1 pg (26-34); Mean Corpuscular Volume 95.8 fl (80-100); Platelet Count Result 223 k/mm3 (150-375); Red Blood Count 3.85 M/mm3 (4.6-6.20); White Blood Count 6.0 K/mm3 (4.5-10.0)
[2024-09-24 15:23] LABS: Alanine Aminotransferase 22 U/L (6-50); Albumin Level 4.6 g/dL (3.5-5.1); Alkaline Phosphatase 56 U/L (38-126); Anion Gap 8 mmol/L (4-12); Aspartate Amino Transferase 64 U/L (17-59); Bilirubin,Total 0.5 mg/dL (0.2-1.3); Blood Urea Nitrogen 15 mg/dL (9-20); Calcium 9.4 mg/dL (8.4-10.2); Carbon Dioxide 25 mmol/L (22-30); Chloride 100 mmol/L (98-107); Cholesterol 149 mg/dL (0-200); Estimated Glomerular Filt Rate > 60; Glucose 108 mg/dL (65-110); HDL Direct 66 mg/dL; Potassium 4.7 mmol/L (3.4-5.0); Sodium 133 mmol/L (137-145); Total Protein 7.9 g/dL (6.3-8.2); Triglycerides 101 mg/dL (<150)
[2024-09-24 16:28] LABS: Hemoglobin A1C 5.7 % (<5.7)
== END 2024-09-24 10:29 | disposition home or self-care (01) ==
LOC: ANHGOSHLAB 10:29
PROVIDERS: PCP Family Medicine; Visit Provider Nurse Practitioner
DX: E78.00 Pure hypercholesterolemia, unspecified (principal); R73.03 Prediabetes; D64.9 Anemia, unspecified
CPT/HCPCS: 36415; 80053; 80061; 83036; 85027